=== PATIENT | male | born 1950 | race African-American/Black ===

== ENCOUNTER 2016-07-20 15:22 | Inpatient (IN) | payer OTHER ==
[2016-07-20 15:43] VITALS: BMI 29.5
--- NOTE | 2016-07-20 17:13 | HP ---
COWS - Scale Resting Pulse: 2= [place] 101-120 Sweatin= Chills/Flushing Restless Observation: 3= Extraneous Movement Pupil Size: 0= Normal to Room Light Bone or Joint Aches: 2= Severe Diffuse Aches Runny Nose/ Eye Tearin= Runny Nose/Eyes GI Upset > 30mins: 2= Nausea/Diarrhea Tremor Observation: 2= Slight Tremor Visible Yawning Observation: 0= None Anxiety or Irritability: 2=Irritable/Anxious Goose Flesh Skin: 0=Smooth Skin COWS Score: 16 Admission [facility] - [facility] Chief Complaint: withdrawal sx Allergies/Adverse Reactions: Allergies Allergy/AdvReac Type Severity Reaction Status Date / Time No Known Allergies Allergy Verified 07/20/16 16:27 History of Present Illness: 65 years old male with long history of heroin nicotine dependence, diabetes ii, hypertension, cataract, and depression, longest sobriety 2 years is admitted to detox Exam Limitations: No Limitations - Ebola screening Have you traveled outside of the country in the last 21 days: No Have you had contact with anyone from an Ebola affected area: No Have you been sick,other than usual withdrawal symptoms: No Do you have a fever: No - Review of Systems Constitutional: Chills, Changes in sleep, Weight Stable EENT: reports: Cataracts (right eye) Respiratory: reports: No Symptoms reported Cardiac: reports: Palpitations GI: reports: Nausea, Poor Fluid Intake, Abdominal cramping : reports: Other (kidney stage 3 - no active treatment) Musculoskeletal: reports: Back Pain, Joint Pain, Muscle Pain, Neck Pain Integumentary: reports: No Symptoms Reported Neuro: reports: Tremors Endocrine: reports: No Symptoms Reported Hematology: reports: No Symptoms Reported Psychiatric: reports: Judgement Intact, Orientated x3, Depressed Other Systems: Reviewed and Negative Patient History - Patient Medical History Hx Anemia: No Hx Asthma: No Hx Chronic Obstructive Pulmonary Disease (COPD): No Hx Cancer: No Hx Cardiac Disorders: No Hx Congestive Heart Failure: No Hx Hypertension: Yes Hx Hypercholesterolemia: No Hx Pacemaker: No HX Cerebrovascular Accident: No Hx Seizures: No Hx Dementia: No Hx Diabetes: Yes (BGM-241) Hx Gastrointestinal Disorders: No Hx Liver Disease: No Hx Genitourinary Disorders: Yes (kidney stage 3 no active treatment) Hx Sexually Transmitted Disorders: No Hx Renal Disease (ESRD): No Hx Thyroid Disease: No Hx Human Immunodeficiency Virus (HIV): No Hx Hepatitis C: No Hx Depression: Yes Hx Suicide Attempt: No Hx Bipolar Disorder: No Hx Schizophrenia: No - Patient Surgical History Past Surgical History: Yes Hx Cataract Extraction: Yes (lt eye 2014) Hx Cardiac Surgery: No Hx Lung Surgery: No Hx Breast Surgery: No Hx Breast Biopsy: No Hx Abdominal Surgery: No Hx Appendectomy: No Hx Cholecystectomy: No Hx Genitourinary Surgery: No Hx Orthopedic Surgery: Yes (lt foot-02/2016) Other Surgical History: right knee Anesthesia Reaction: No - PPD History Previous Implant?: Yes Documented Results: Negative w/o proof Implanted On Prior [facility] Admission?: No PPD to be Administered?: Yes - Smoking Cessation Smoking history: Never smoked Have you smoked in the past 12 months: No Hx Chewing Tobacco Use: No Initiated information on smoking cessation: No - Substance & Tx. History Hx Alcohol Use: No Hx Substance Use: Yes Substance Use Type: Heroin Hx Substance Use Treatment: Yes - Substances Abused Heroin Route: Inhalation Frequency: Daily Amount used: 12 BAGS Age of first use: 50 Date of Last Use: 07/20/16 Family Disease History - Family Disease History Family Disease History: Heart Disease: Father (), Mother (), [place] : Brother (bone ) Admission Physical Exam [facility] - Vital Signs Vital Signs: Vital Signs - 24 hr 07/20/16 15:41 Temperature 97.2 F L Pulse Rate 104 H Respiratory 18 Rate Blood Pressure 187/107 - Physical General Appearance: Yes: Nourished, Appropriately Dressed, Mild Distress, Tremorous, Irritable, Sweating, Anxious HEENTM: Yes: Hearing grossly Normal, Normal ENT Inspection, Normocephalic, Normal Voice Respiratory: Yes: Chest Non-Tender, Lungs Clear, Normal Breath Sounds, No Respiratory Distress, No Accessory Muscle Use Neck: Yes: Supple, Trachea in good position Breast: Yes: Breasts Symetrical Cardiology: Yes: Regular Rhythm, S1, S2, Tachycardia, Other (cardiomyopathy) Abdominal: Yes: Non Tender, Soft Genitourinary: Yes: Within Normal Limits, Pain ("one kidney stage 3") Back: Yes: Normal Inspection Musculoskeletal: Yes: Gait Steady (walker), Back pain, Muscle Pain, Muscle weakness (left foot) Extremities: Yes: Non-Tender, Tremors, Swelling (left foot) Neurological: Yes: Fully Oriented, Alert, Motor Strength 5/5, Normal Response, Depressed Affect Integumentary: Yes: Dry, Warm, Other (left foot hyperpigmentation) Lymphatic: Yes: Within Normal Limits - Diagnostic (1) Opioid dependence with withdrawal Current Visit: Yes Status: Acute (2) Hypertension Current Visit: Yes Status: Acute Qualifiers: Hypertension type: essential hypertension Qualified Code(s): I10 - Essential (primary) hypertension (3) Diabetes mellitus type II, non insulin dependent Current Visit: Yes Status: Acute Comment: dietary control, no oral medication (4) Cataract Current Visit: Yes Status: Chronic Comment: left repaired right eye scheduled (5) Status post left foot surgery Current Visit: Yes Status: Resolved (6) Kidney disease, chronic, stage III (moderate, EGFR 30-59 ml/min) Current Visit: Yes Status: Chronic (7) Walker as ambulation aid Current Visit: Yes Status: Resolved (8) Sea-boot foot of left lower extremity Current Visit: Yes Status: Resolved Qualifiers: Encounter type: sequela Qualified Code(s): T69.022S - Immersion foot , left foot, sequela Cleared for Admission [facility] - Detox or Rehab [facility] Level of Care: Medically Managed Detox Regimen/Protocol: Methadone [facility] Breath Alcohol Content Breath Alcohol Content: 0 Urine Drug Screen - Results Drug Screen Negative: No Urine Drug Screen Results: OPI-Opiates, BZO-Benzodiazepines, MTD-Methadone
[2016-07-20] MEDS ORDERED: guaiFENesin/D-METHORPHAN HB 10 ML UNIT-DOSE CUPS PO PRN (17:18)
[2016-07-20] MEDS ORDERED: MENTHOL/PHENOL 1 EACH UD MM PRN (17:18)
[2016-07-20] MEDS ORDERED: MAGNESIUM HYDROX 2400MG/30ML ORAL SUSPENSION 30 ML CUP PO PRN (17:18)
[2016-07-20] MEDS ORDERED: diphenhydrAMINE HCL 50 MG CAPSULE PO PRN (17:18)
[2016-07-20] MEDS ORDERED: LOPERAMIDE HCL 2 MG CAPSULE PO PRN (17:18)
[2016-07-20] MEDS ORDERED: P-EPHED 60MG/TRIPROLIDI 2.5MG TABLET PO PRN (17:18)
[2016-07-20] MEDS ORDERED: MAG HYDROX/AL HYDROX/SIMETH 30 ML UNIT-DOSE CUP PO PRN (17:18)
[2016-07-20] MEDS ORDERED: MAGNESIUM CITRATE 300 ML BOTTLE PO PRN (17:18)
[2016-07-20] MEDS ORDERED: IBUPROFEN 400 MG TABLET (FP) PO PRN (17:18)
[2016-07-20] MEDS ORDERED: ACETAMINOPHEN 325 MG TABLET (FP) PO PRN (17:18)
[2016-07-20] MEDS ORDERED: cloNIDine HCL 0.1 MG TABLET PO PRN (17:23)
[2016-07-20] MEDS ORDERED: METHADONE HCL 10 MG TABLET (FOR DETOX USE ONLY) PO ONE ×2 (18:30→23:00)
[2016-07-20] MEDS: LISINOPRIL 20 MG TABLET (FP) PO SCH (18:43)
[2016-07-20] MEDS: amLODIPine BESYLATE 10 MG TABLET (FP) PO SCH (18:43)
[2016-07-20] MEDS: diazePAM 5 MG TABLET PO PRN ×2 (18:43→22:36)
[2016-07-20 20:27] LABS: URINE APPEARANCE CLEAR; URINE BILIRUBIN NEGATIVE (NEGATIVE); URINE BLOOD NEGATIVE (NEGATIVE); URINE COLOR YELLOW; URINE GLUCOSE (UA) 2+ (NEGATIVE); URINE KETONE NEGATIVE (NEGATIVE); URINE LEUK ESTERASE NEGATIVE (NEGATIVE); URINE NITRITE NEGATIVE (NEGATIVE); URINE PROTEIN 3+ (NEGATIVE); URINE UROBILINOGEN NEGATIVE E.U./dl (0.2-1.0)
[2016-07-20 20:29] LABS: URINE MUCUS RARE; URINE RBC 12 /hpf (0-3); URINE WBC 2 /hpf (3-5)
[2016-07-20] MEDS ORDERED: MINERAL OIL/PETROLAT/WATER TOPICAL CREAM 454 GM JAR TP SCH (22:00)
[2016-07-20] MEDS ORDERED: THIAMINE HCL 100 MG TABLET (FP) PO SCH (22:00)
[2016-07-20] MEDS ORDERED: ONDANSETRON *ODT* 4 MG TABLET SL ONE (22:53)
[2016-07-21] MEDS ORDERED: METHADONE HCL 10 MG TABLET (FOR DETOX USE ONLY) PO ONE (10:00)
[2016-07-21] MEDS ORDERED: PRENATAL VITAMINS W/ FOLIC ACID TABLET (FP) PO SCH (10:00)
--- NOTE | 2016-07-21 10:26 | CONSULT ---
[facility] Psychiatric Consult - Data Date of interview: 07/21/16 Admission source: [facility] Identifying data: This is 65 years old male ambulatieng with walker,wheelchare, with no psychiatric hospitalization history intoxicated with Heroin Substance Abuse History: - Smoking Cessation. Smoking history: Never smoked. Have you smoked in the past 12 months: No. Hx Chewing Tobacco Use: No. Initiated information on smoking cessation: No. - Substance & Tx. History. Hx Alcohol Use: No. Hx Substance Use: Yes. Substance Use Type: Heroin. Hx Substance Use Treatment: Yes. - Substances Abused. Heroin. Route: Inhalation. Frequency: Daily. Amount used: 12 BAGS. Age of first use: 50. Date of Last Use: 07/20/16 Medical History: Left leg injury history, DM-2, Catarcta history, Kidney problems history, Psychiatric History: Denies Physical/Sexual Abuse/Trauma History: Denies Additional Comment: Observation. Detox Unit Care protocol Mental Status Exam - Mental Status Exam Alert and Oriented to: Person Patient Appearance: Unkempt Mood: Apprehensive Affect: Appropriate Patient Behavior: Cooperative Speech Pattern: Appropriate Voice Loudness: Mildly Soft/Quiet Thought Process: Goal Oriented Thought Disorder: Being Controlled Hallucinations: Denies Suicidal Ideation: Denies Homicidal Ideation: Denies Insight/Judgement: Fair Sleep: Difficulty falling asleep Appetite: Fair Muscle strength/Tone: Rigidity Gait/Station: Ataxic Additional Comments: Observation. Detox Unit Care protocol Psychiatric Findings - Problem List ([place] 1, 2,3) (1) Opioid dependence with withdrawal Current Visit: Yes Status: Acute (2) Opioid-induced mood disorder Current Visit: Yes Status: Suspected (3) Opioid-induced sleep disorder, insomnia type, with onset during discontinuation/withdrawal Current Visit: Yes Status: Acute - Initial Treatment Plan Initial Treatment Plan: Observation. Detox Unit Care protocol
[2016-07-21] MEDS: LISINOPRIL 20 MG TABLET (FP) PO SCH (10:28)
[2016-07-21] MEDS: amLODIPine BESYLATE 10 MG TABLET (FP) PO SCH (10:29)
[2016-07-21 10:39] LABS: MCHC 32.7 g/dl (32.0-35.9); MEAN CELL VOLUME 85.8 fl (80-96); PLATELET COUNT 329 K/MM3 (134-434); WHITE BLOOD COUNT 19.8 K/mm3 (4.0-10.0)
[2016-07-21 11:02] LABS: ALBUMIN 3.7 g/dl (3.4-5.0); BILIRUBIN,TOTAL 1.3 mg/dL (0.2-1.0); CALCIUM 8.7 mg/dL (8.5-10.1); CREATININE 1.8 mg/dL (0.7-1.3); TOT PROT 7.8 g/dl (6.4-8.2)
--- NOTE | 2016-07-21 11:18 | EKG ---
Test Reason : Blood Pressure : / mmHG Vent. Rate : 097 BPM Atrial Rate : 097 BPM P-R Int : 148 ms QRS Dur : 090 ms QT Int : 350 ms P-R-T Axes : 054 -44 042 degrees QTc Int : 444 ms NORMAL SINUS RHYTHM POSSIBLE LEFT ATRIAL ENLARGEMENT LEFT AXIS DEVIATION LEFT VENTRICULAR HYPERTROPHY ABNORMAL ECG NO PREVIOUS ECGS AVAILABLE Confirmed by SHO ACOSTA MD ([id number]) on 07/21/2016 11:18:19 AM Referred By: Confirmed By:SHO ACOSTA MD
[2016-07-21 14:07] VITALS: BP 133/88; PULSE 98; TEMP 99.1
--- NOTE | 2016-07-21 15:11 | PN ---
S CIWA - CIWA Score Nausea/Vomitin Muscle Tremors: 2 Anxiety: 2 Agitation: 2 Paroxysmal Sweats: 3 Tacttile Disturbances: 2-Mild Itch/Numbness/Burn S COWS - Scale Resting Pulse: 1= [place] 81-100 Sweatin=Flushed/Facial Moisture Restless Observation: 1= Difficult to Sit Still Pupil Size: 1= Pupils >than Normal Bone or Joint Aches: 2= Severe Diffuse Aches Runny Nose/ Eye Tearin= Nasal Congestion GI Upset > 30mins: 1= Stomach Cramp Tremor Observation of Outstretched Hands: 1= Tremor [place], Not Seen Yawning Observation: 1= 1-2x During Session Anxiety or Irritability: 1=Feels Anxious/Irritable Goose Flesh Skin: 0=Smooth Skin COWS Score: 12 S Progress Note (SOAP) Subjective: interrupted sleep, sweats, nausea, leg pains , fever Objective: 07/21/16 15:08 Vital Signs Temperature 99.1 F 07/21/16 14:07 Pulse Rate 98 H 07/21/16 14:07 Respiratory Rate 18 07/21/16 14:07 Blood Pressure 133/88 07/21/16 14:07 O2 Sat by Pulse Oximetry (%) Laboratory Tests 07/20/16 07/20/16 07/21/16 16:17 19:00 06:00 WBC 19.8 H RBC 4.10 Hgb 11.5 L Hct 35.2 L MCV 85.8 MCHC 32.7 RDW 14.0 Plt Count 329 MPV 8.0 Sodium Potassium Chloride Carbon Dioxide Anion Gap BUN Creatinine Creat Clearance w eGFR POC Glucometer 241 Random Glucose Calcium Total Bilirubin AST ALT Alkaline Phosphatase Total Protein Albumin Urine Color Yellow Urine Appearance Clear Urine pH 6.0 Ur Specific [place] 1.020 Urine Protein 3+ H Urine Glucose (UA) 2+ H Urine Ketones Negative Urine Blood Negative Urine Nitrite Negative Urine Bilirubin Negative Urine Urobilinogen Negative Ur Leukocyte Esterase Negative Urine RBC 12 Urine WBC 2 Ur Epithelial Cells Rare Urine Mucus Rare RPR Titer 07/21/16 07/21/16 07/21/16 06:00 06:00 06:04 WBC RBC Hgb Hct MCV MCHC RDW Plt Count MPV Sodium 136 Potassium 4.5 Chloride 102 Carbon Dioxide 23 Anion Gap 11 BUN 24 H Creatinine 1.8 H Creat Clearance w eGFR 38.18 POC Glucometer 198 Random Glucose 197 H Calcium 8.7 Total Bilirubin 1.3 H AST 15 ALT 21 Alkaline Phosphatase 150 H Total Protein 7.8 Albumin 3.7 Urine Color Urine Appearance Urine pH Ur Specific [place] Urine Protein Urine Glucose (UA) Urine Ketones Urine Blood Urine Nitrite Urine Bilirubin Urine Urobilinogen Ur Leukocyte Esterase Urine RBC Urine WBC Ur Epithelial Cells Urine Mucus RPR Titer Nonreactive pt aox3 in nad ambulating oral clear 07/21/16 15:09 lungs clear abd soft nontender bs + Assessment: 07/21/16 15:09 withdrawl sx's fever leucocytosis dm htn Plan: cont. detox increase fluids transfer to ED pt signed out to PA. Russell empresss ambulette activated
[2016-07-22] MEDS ORDERED: METHADONE HCL 5 MG TABLET (FOR DETOX USE ONLY) PO ONE (10:00)
[2016-07-23] MEDS ORDERED: METHADONE HCL 5 MG TABLET (FOR DETOX USE ONLY) PO ONE (10:00)
[2016-07-24] MEDS ORDERED: METHADONE HCL 10 MG TABLET (FOR DETOX USE ONLY) PO ONE (10:00)
[2016-07-25] MEDS ORDERED: METHADONE HCL 5 MG TABLET (FOR DETOX USE ONLY) PO ONE (06:00)
--- NOTE | 2016-07-28 10:08 | DS ---
[facility] Detox Discharge Summary Admission Date: 07/20/16 Discharge Date: 07/21/16 - History Present History: Opioid Dependence - Physical Exam Results Vital Signs: Vital Signs Temperature 99.1 F 07/21/16 14:07 Pulse Rate 98 H 07/21/16 14:07 Respiratory Rate 18 07/21/16 14:07 Blood Pressure 133/88 07/21/16 14:07 O2 Sat by Pulse Oximetry (%) - Treatment Hospital Course: Detox Protocol Followed - Medication Discharge Medications: Ambulatory Orders Amlodipine Besylate [Norvasc -] 10 mg PO DAILY 07/20/16 Lisinopril [Prinivil] 40 mg PO DAILY 07/20/16 Clonidine HCl [Catapres -] 0.1 mg PO TID #90 tablet 07/25/16 Thiamine HCl [Vitamin B1 -] 100 mg PO DAILY #30 tablet 07/25/16 - Diagnosis (1) Pneumonia Status: Acute Qualifiers: Aspiration pneumonia type: unspecified (2) Sepsis Status: Acute Qualifiers: Sepsis type: sepsis due to unspecified organism Qualified Code(s): A41.9 - Sepsis, unspecified organism (3) Small bowel obstruction Status: Acute (4) Diabetes mellitus type II, non insulin dependent Status: Chronic (5) Hypertension Status: Chronic Qualifiers: Hypertension type: essential hypertension Qualified Code(s): I10 - Essential (primary) hypertension (6) Opioid dependence with withdrawal Status: Chronic (7) Kidney disease, chronic, stage III (moderate, EGFR 30-59 ml/min) Status: Chronic - AMA Did Patient Leave Against Medical Advice: No (pt transfered to [facility] for further evaluation. )
== END 2016-07-21 23:45 | disposition short-term general hospital (02) | DRG 897 ==
LOC: YASAS 15:22 → Y6N 18:07
PROVIDERS: ADMIT Internal Medicine Addiction Medicine; ATTEND Internal Medicine Addiction Medicine
PROC: HZ2ZZZZ Detoxification Services for Substance Abuse Treatment (ICD-10-PCS; principal; 2016-07-20)
DX: F11.23 Opioid dependence with withdrawal (principal); F11.282 Opioid dependence with opioid-induced sleep disorder; F11.24 Opioid dependence with opioid-induced mood disorder; F17.210 Nicotine dependence, cigarettes, uncomplicated; E11.9 Type 2 diabetes mellitus without complications; H26.9 Unspecified cataract; I12.9 Hypertensive chronic kidney disease with stage 1 through stage 4 chronic kidney disease, or unspecified chronic kidney disease; N18.3 Chronic kidney disease, stage 3 (moderate); Z98.42 Cataract extraction status, left eye; Z99.89 Dependence on other enabling machines and devices; R26.2 Difficulty in walking, not elsewhere classified; D72.829 Elevated white blood cell count, unspecified; R50.9 Fever, unspecified; T69 Other effects of reduced temperature
CPT/HCPCS: 36415; 80053; 81003; 81015; 85027; 86593; 93005; 93010

== ENCOUNTER 2016-07-21 15:56 | Inpatient (IN) | payer OTHER ==
[2016-07-21] MEDS ORDERED: SODIUM CHLORIDE 1,000 ML IV STA (16:16)
[2016-07-21] MEDS ORDERED: ACETAMINOPHEN 325 MG TABLET (FP) PO ONE (16:19)
[2016-07-21] MEDS ORDERED: ACETAMINOPHEN 325 MG TABLET (FP) ONE (16:44)
[2016-07-21 16:53] LABS: VENOUS PH 7.33 (7.31-7.41)
[2016-07-21 16:55] LABS: VENOUS BLOOD GAS HCO3 25.6 meq/L (22-29)
[2016-07-21 17:00] LABS: URINE APPEARANCE CLEAR; URINE BILIRUBIN NEGATIVE (NEGATIVE); URINE COLOR YELLOW; URINE GLUCOSE (UA) 2+ (NEGATIVE); URINE KETONE NEGATIVE (NEGATIVE); URINE LEUK ESTERASE NEGATIVE (NEGATIVE); URINE NITRITE NEGATIVE (NEGATIVE); URINE UROBILINOGEN NEGATIVE E.U./dl (0.2-1.0)
[2016-07-21 17:03] LABS: BASOPHIL 0.3 % (0-2.0); EOSINOPHIL 0.3 % (0-4.5); MCH 27.9 pg (25.7-33.7); MCHC 33.2 g/dl (32.0-35.9); MEAN CELL VOLUME 84.1 fl (80-96); MEAN PLT VOLUME 7.5 fl (7.5-11.1); PLATELET COUNT 340 K/MM3 (134-434)
[2016-07-21] MEDS ORDERED: LISINOPRIL 10 MG TABLET (FP) PO ONE (17:06)
[2016-07-21] MEDS ORDERED: amLODIPine BESYLATE 10 MG TABLET (FP) PO ONE ×2 (17:06→17:13)
--- NOTE | 2016-07-21 17:11 | PDOC ---
History of Present Illness - General Chief Complaint: SIRS, Suspected/Possible Stated Complaint: FEVER Time Seen by Provider: 07/21/16 16:15 History Source: Patient - History of Present Illness Timing/Duration: other Associated Symptoms: reports: fever/chills, malaise, nausea/vomiting. denies: chest pain, cough, headaches, shortness of breath Past History - Past Medical History Allergies/Adverse Reactions: Allergies Allergy/AdvReac Type Severity Reaction Status Date / Time No Known Allergies Allergy Verified 07/21/16 16:14 Home Medications: Ambulatory Orders Amlodipine Besylate [Norvasc -] 10 mg PO DAILY 07/20/16 Lisinopril [Prinivil] 40 mg PO DAILY 07/20/16 Methadone HCl 20 mg PO DAILY 07/21/16 Anemia: No Asthma: No Cancer: No Cardiac Disorders: No CVA: No COPD: No CHF: No Dementia: No Diabetes: Yes (BGM-241) GI Disorders: No Disorders: Yes (kidney stage 3 no active treatment) HTN: Yes Hypercholesterolemia: No Kidney Stones: No Liver Disease: No Suicide Attempt (Hx): No Seizures: No Thyroid Disease: No - Surgical History Abdominal Surgery: No Appendectomy: No Cardiac Surgery: No Cholecystectomy: No Lung Surgery: No Orthopedic Surgery: Yes (lt -02/2016) - Reproductive History Testicular Surgery: No - Psycho/Social/Smoking Cessation Hx Anxiety: No Suicidal Ideation: No Smoking History: Never smoked Have you smoked in the past 12 months: No Information on smoking cessation initiated: No Hx Alcohol Use: No Drug/Substance Use Hx: Yes (Heroine) Substance Use Type: Heroin Hx Substance Use Treatment: Yes Review of Systems - Review of Systems Constitutional: Yes: Chills, Fever, Malaise HEENTM: No: Ear Pain, Throat Pain Respiratory: No: Cough, Shortness of Breath ABD/GI: Yes: Nausea, Vomiting. No: Constipated, Diarrhea, Abdominal cramping : No: Dysuria, Hematuria Neurological: No: Headache, Dizziness *Physical Exam - Vital Signs Last Vital Signs Temp Pulse Resp BP Pulse Ox 102.5 F H 106 H 18 175/100 95 07/21/16 16:12 07/21/16 16:12 07/21/16 16:12 07/21/16 16:12 07/21/16 16:12 - Physical Exam General Appearance: Yes: Appropriately Dressed. No: Apparent Distress HEENT: positive: Normal ENT Inspection, Normal Voice. negative: Scleral Icterus (R), Scleral Icterus (L) Neck: positive: Supple. negative: Lymphadenopathy (R), Lymphadenopathy (L) Respiratory/Chest: positive: Lungs Clear, Normal Breath Sounds. negative: Respiratory Distress Cardiovascular: positive: Regular Rate, S1, S2 Gastrointestinal/Abdominal: positive: Soft. negative: Tender Integumentary: positive: Dry, Warm Neurologic: positive: Fully Oriented, Alert, Normal Mood/Affect ED Treatment Course - LABORATORY CBC & Chemistry Diagram: 07/21/16 16:27 07/21/16 16:26 - ADDITIONAL ORDERS Additional order review: Laboratory Results 07/21/16 16:50 VBG pH 7.33 POC VBG pCO2 50.2 POC VBG pO2 18.3 L* - RADIOLOGY Radiology Studies Ordered: Category Date Time Status CHEST X-RAY PORTABLE* [RAD] Stat Radiology 07/21/16 16:16 Completed Medical Decision Making - Medical Decision Making 07/21/16 17:07 65 yo M, h/o HTN, DM, CKD, heroin abuse, currently in rehab at [facility] and now sent in for fever w/ leukocytosis today. Patient's reports that he was admitted to rehab yesterday, but that prior to that he had been feeling nauseous at home with chills and malaise. States symptoms have since worsened. Denies cough, shortness of breath, chest pain, abdominal pain, changes to bowel movements, dysuria, headache, neck stiffness, photophobia or dizziness. See exam Fever Triggered sepsis at triage given Fever of 102 and tachycardia -tylenol -IVF -labs/ua/cxr -anticipate admission HTN Elevated BP in ED Admits to not taking his meds x 1 week as he ran out -will given home meds and reassess 07/21/16 18:15 X-ray read as possible early R basilar PNA w/ wbc of 20. Will tx for CAP as d/w ED attg and admit 07/21/16 18:57 *DC/Admit/Observation/Transfer Diagnosis at time of Disposition: Pneumonia Qualifiers: Pneumonia type: due to unspecified organism Laterality: unspecified laterality Lung location: unspecified part of lung Qualified Code(s): J18.9 - Pneumonia, unspecified organism - Discharge Dispostion Condition at time of disposition: Fair Admit: Yes - Referrals Referrals: STAFF,NOT ON [Primary Care Provider] -
[2016-07-21 17:12] LABS: URINE BLOOD 1+ (NEGATIVE); URINE PROTEIN 3+ (NEGATIVE)
[2016-07-21] MEDS ORDERED: amLODIPine BESYLATE 5 MG TABLET (FP) ONE (17:13)
[2016-07-21] MEDS ORDERED: LISINOPRIL 20 MG TABLET (FP) PO ONE (17:13)
[2016-07-21] MEDS ORDERED: LISINOPRIL 20 MG TABLET (FP) ONE (17:14)
[2016-07-21 17:33] LABS: INR 1.26 (0.82-1.09); PROTHROMBIN TIME (PATIENT) 13.9 SEC (9.98-11.88)
[2016-07-21 17:58] LABS: ALBUMIN 3.2 g/dl (3.4-5.0); ANION GAP 12 (8-16); BILIRUBIN,TOTAL 1.2 mg/dL (0.2-1.0); CALCIUM 8.6 mg/dL (8.5-10.1); CO2 26 mmol/L (21-32); CREATININE 2.1 mg/dL (0.7-1.3); GLUCOSE,RANDOM 201 mg/dL (74-106); SGOT/AST 20 U/L (15-37); SGPT/ALT 23 U/L (12-78); TOT PROT 7.6 g/dl (6.4-8.2)
[2016-07-21 18:00] LABS: ALK PHOS 136 U/L (45-117)
[2016-07-21 18:01] LABS: URINE HYALINE CAST 8 /lpf; URINE MUCUS RARE; URINE RBC 10 /hpf (0-3); URINE WBC 2 /hpf (3-5)
[2016-07-21] MEDS ORDERED: AZITHROMYCIN IVPB 500 MG in DEXTROSE 5%-WATER - 250 ML IVPB ONE (18:48)
[2016-07-21] MEDS ORDERED: CEFTRIAXONE 1 GM in DEXTROSE 5%-WATER - 50 ML IVPB ONE (18:48)
[2016-07-21] MEDS ORDERED: CEFTRIAXONE 50 ML ONE (19:04)
[2016-07-21] MEDS ORDERED: AZITHROMYCIN IVPB 250 ML IVPB ONE (19:32)
[2016-07-21 19:45] LABS: TROPONIN I < 0.02 ng/ml (0.00-0.05)
--- NOTE | 2016-07-21 20:29 | PN ---
<Gomez Godinez - Last Filed: 07/21/16 20:27> Teaching Attending Note Name of Resident: Shani Chavez ATTENDING PHYSICIAN STATEMENT I saw and evaluated the patient. I reviewed the resident's note and discussed the case with the resident. I agree with the resident's findings and plan as documented. SUBJECTIVE: OBJECTIVE: ASSESSMENT AND PLAN: <Cait Carrington - Last Filed: 07/21/16 22:54> Teaching Attending Note ATTENDING PHYSICIAN STATEMENT I saw and evaluated the patient. I reviewed the resident's note and discussed the case with the resident. I agree with the resident's findings and plan as documented. SUBJECTIVE: 65 yo M with PMHx of HTN, DM, CKD stage 3, heroin abuse, and depression who presents with shortness of breath, fever, chills, nausea, vomiting, and malaise for 1 day. He notes the vomit was whitish in color and had no blood. Patient states he was recently admitted to rehab yesterday for heroin at [facility] [address] 20 hours prior. Patient also states an associated runny nose, cough and frontal headache. Patient has not has his flu shot. Patient denies sick contacts. Denies: abdominal pain, dysuria, diarrhea, ear pain, sinus pain, chest pain Surgical Hx: orthopaedic left foot, left cataract surgery OBJECTIVE: Last Vital Signs Temp Pulse Resp BP Pulse Ox 99.8 F H 92 H 18 120/77 95 07/21/16 19:47 07/21/16 22:17 07/21/16 22:17 07/21/16 22:17 07/21/16 22:17 GENERAL: Awake, alert, and fully oriented, in mild distress, follows commands HEENT: Atraumatic. Pinpoint pupils bilaterally, non-icteric sclera. No sinus tenderness. Moist mucosa. No JVD. No LAD. LUNGS: No distress, speaks full sentences, clear to auscultation bilaterally, no wheezing, rhonchi or rales. HEART: Regular rate and rhythm, normal S1 and S2, no murmurs, rubs or gallops. ABDOMEN: Soft, nontender, normoactive bowel sounds. No guarding, no rebound. No masses EXTREMITIES: Left leg in boot, no edema. Right foot no infections. No clubbing or cyanosis. NEUROLOGICAL: Normal speech, no focal deficits noted. SKIN: Warm, Dry, normal turgor. Right leg chronic scaly skin changes noted. CBCD WBC 20.0 K/mm3 (4.0-10.0) H 07/21/16 16:27 RBC 3.93 M/mm3 (4.00-5.60) L 07/21/16 16:27 Hgb 11.0 GM/dL (11.7-16.9) L 07/21/16 16:27 Hct 33.0 % (35.4-49) L 07/21/16 16:27 MCV 84.1 fl (80-96) 07/21/16 16:27 MCHC 33.2 g/dl (32.0-35.9) 07/21/16 16: RDW 14.0 % (11.9-15.9) 07/21/16 16:27 Plt Count 340 K/MM3 (134-434) 07/21/16 16:27 MPV 7.5 fl (7.5-11.1) 07/21/16 16:27 CMP Sodium 131 mmol/L (136-145) L 07/21/16 16:26 Potassium 4.4 mmol/L (3.5-5.1) 07/21/16 16:26 Chloride 93 mmol/L (98-107) L 07/21/16 16:26 Carbon Dioxide 26 mmol/L (21-32) 07/21/16 16:26 Anion Gap 12 (8-16) 07/21/16 16:26 BUN 28 mg/dL (7-18) H 07/21/16 16:26 Creatinine 2.1 mg/dL (0.7-1.3) H 07/21/16 16:26 Creat Clearance w eGFR 31.96 (>60) 07/21/16 16:26 Calcium 8.6 mg/dL (8.5-10.1) 07/21/16 16:26 Total Bilirubin 1.2 mg/dL (0.2-1.0) H 07/21/16 16:26 AST 20 U/L (15-37) D 07/21/16 16:26 ALT 23 U/L (12-78) 07/21/16 16:26 Alkaline Phosphatase 136 U/L (45-117) H 07/21/16 16:26 Total Protein 7.6 g/dl (6.4-8.2) 07/21/16 16:26 Albumin 3.2 g/dl (3.4-5.0) L 07/21/16 16:26 Chest X-Ray Impression: Possible early right basiliar consolidation. ASSESSMENT AND PLAN: 65 yo M with PMHx of HTN, DM, CKD stage 3, heroin abuse, and depression who presents with sepsis secondary to CAP. 1.) Sepsis secondary to community acquired pneumonia -Send 2 sets of blood cultures -Sputum culture -Legionella antigen in urine -Pneumococcal antigen in urine -2 L O2 nasal cannula -Ceftriaxone 2g IV PB Q 24hrs -Azithromycin 500 mg IV PB Q 24 hours 2.) MORGAN on CKD -Send urine lytes -Urine creatine -Repeat UA -Renal US -Avoid nephrotoxic medications -Gentle IV fluid hydration 3.) HTN -Resume amlodipine and lisinopril 4.) DM -Insulin sliding scale -Diabetic diet 5.) Heroin dependence/ no signs of current withdraw. Not in methadone program -Methadone PRN if withdraw 6.) DVT ppx -Heparin 5000 units Q 12 hours Documentation prepared by Cait Carrington, acting as medical assistant instructor for Gomez Godinez M.D.
--- NOTE | 2016-07-21 21:41 | HP ---
CHIEF COMPLAINT: Cold, fever, cough, SOB PCP: Dr. Rik Gorman HISTORY OF PRESENT ILLNESS: 65 year old male presented to the ED with the chief complaint of cold, fever, cough x 1 day. A/c to the patient, he was in the rehab for more than 20 hours yesterday and started feeling unwell. Initially started with runny nose, productive cough producing whitish sputum. It was associated with fever (not recorded), chills, rigors and sweating. Patient reports to have nausea and few episodes of vomiting yesterday, containing food particles, no blood noticed. 1 episode of vomiting during examination in the ED. No abdominal pain, chest pain , palpitation. Patient mentions he has dizziness along with headache, frontal area, on/off. Denies LOC. Lives with . ER course was notable for: (1) CBC, CMP, UA (2) CXR (3) Ceftriaxone, Azithromycin, NS, Tylenol Recent Travel: None PAST MEDICAL HISTORY: Heroin dependence detox, Hypertension, DM II, Cataract, Depression, longest sobriety 2 years, CKD III PAST SURGICAL HISTORY: Left foot surgery in 2016 (36pins), Social History: Smoking: Never smoked as per the patient Alcohol: Never took alcohol as per the patient Drugs: Heroine (inhalation) since 1991 Family History: Brother of bone cancer 3 months ago. 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 Absent: weight change HEENT: Absent: rhinorrhea, nasal congestion, throat pain, throat swelling, difficulty swallowing, mouth swelling, ear pain, eye pain, visual changes CARDIOVASCULAR: Absent: chest pain, syncope, palpitations, irregular heart rate, lightheadedness , peripheral edema RESPIRATORY: Present: cough, shortness of breath Absent: dyspnea with exertion, orthopnea, wheezing, stridor, hemoptysis GASTROINTESTINAL: Present: nausea, vomiting Absent: abdominal pain, abdominal distension, , diarrhea, constipation, melena, hematochezia GENITOURINARY: Absent: dysuria, frequency, urgency, hesitancy, hematuria, flank pain, genital pain MUSCULOSKELETAL: Absent: myalgia, arthralgia, joint swelling, back pain, neck pain SKIN: Absent: rash, itching, pallor HEMATOLOGIC/IMMUNOLOGIC: Absent: easy bleeding, easy bruising, lymphadenopathy, frequent infections ENDOCRINE: Absent: unexplained weight gain, unexplained weight loss, heat intolerance, cold intolerance NEUROLOGIC: Absent: headache, focal weakness or paresthesias, dizziness, unsteady gait, seizure, mental status changes, bladder or bowel incontinence PSYCHIATRIC: Present: Depression Absent: anxiety, suicidal or homicidal ideation, hallucinations. PHYSICAL EXAMINATION Vital Signs - 24 hr 07/21/16 07/21/16 19:47 20:35 Temperature 99.8 F H Pulse Rate [ 96 H 88 Apical] Respiratory 18 18 Rate Blood Pressure 169/100 120/8 [Right Arm] O2 Sat by Pulse 95 95 Oximetry (%) GENERAL: Patient lying in bed in propped up position, vomiting, Awake, alert, and fully oriented, in mild respiratory distress. HEAD: Normal with no signs of trauma. EYES: EOM intact, no pallor or icterus. EARS, NOSE, THROAT: Ears normal. Moist mucous membranes. NECK: Supple. LUNGS: B/L equal air entry. No wheezes, and no crackles. No accessory muscle use. HEART: Regular rate and rhythm, normal S1 and S2 without murmur. ABDOMEN: Tense +, distended+, non tender, normoactive bowel sounds, guarding +, no rebound, no masses. Hepatosplenomegaly couldn't be appreciated. MUSCULOSKELETAL: Normal range of motion at all joints. No bony deformities or tenderness. No CVA tenderness. UPPER EXTREMITIES: 2+ pulses, warm, well-perfused. No cyanosis. No clubbing. No peripheral edema. LOWER EXTREMITIES: Left Boot in place Right lower extremity: Scaly dermatitis, 2+ pulses, warm, well-perfused. No edema. NEUROLOGICAL: Cranial nerves II-XII intact. Normal speech. Gait not observed. PSYCHIATRIC: Cooperative. Good eye contact. Appropriate mood and affect. SKIN: Warm, dry, normal turgor, no rashes or lesions noted. ASSESSMENT/PLAN: 65 year old male with significant PMH of Heroin dependence detox, Hypertension, DM II, Cataract, Depression, longest sobriety 2 years, CKD III presented to the ED with the chief complaint of cold, fever, cough x 1 day. # Sepsis most likely secondary to Community acquired pneumonia Patient presented with fever, cough, sob, Temp-102.2F, 101bpm, leukocytosis of 20. SIRS-3 CXR shows right lower lobe infiltrate In the ED, patient was given 1gm of Ceftriaxone, Azithromycin Patient continued with IV Ceftriaxone 2gm Daily, IV Azithromycin IV NS @ 83mls/hr. Zofran 4mg IVPB stat and PRN Nasopharyngeal swab negative for Influenza Blood culture/Urine culture pending Urine for Legionella ordered Sputum for culture ordered Monitor Vitals # Drug abuse Patient currently on detox for Heroine abuse at rehab in [facility]. COWS score- Urine tox sent As per [facility] u tox: Positive for Opiates, heroine, Benzodiazepine Received Methadone 10mg on 07/20/2016 and 20mg on 07/21/2016 Methadone not resumed, to be continued after confirming the dose with PCP Watch for withdrawal symptoms Counseling # MORGAN with CKD stage III Patients creatinine increased 1.8--->2 (baseline creatinine unknown) IV NS @ 83mls/hr Avoid nephrotoxic drugs # Hyponatremia Na-131 most likely due to pneumonia IV NS continued Urine electrolytes, urine creatinine ordered # Diabetes Mellitus RBS- 197 HbA1c ordered Patient was on Metformin for 10 years, currently stopped due to renal failure. Patient not on any home meds for DM as he wants to try with diet control. Insulin sliding scale ordered however patient refused. BGM Diabetic diet # Hypertension Continued Amlodipine 10mg and Lisinopril 40mg # Depression Not on any meds Counseling # FEN IV NS @ 83mls/hr Electrolytes to be repeated Diabetic diet # Prophylaxis For DVT- On Heparin 5000 sq For GI- Not indicated # Dispo: Admitted in Med- Surg. Duration of stay unknown # Code Status: Full code. Illness, Investigation and plan of care explained to the patient. He verbalized understanding. Case seen and discussed with Dr. Godinez. Visit type - Emergency Visit Emergency Visit: Yes ED Registration Date: 07/21/16 Care time: The patient presented to the Emergency Department on the above date and was hospitalized for further evaluation of their emergent condition. - New Patient This patient is new to me today: Yes Date on this admission: 07/22/16 - Critical Care Critical Care patient: No
[2016-07-21] MEDS ORDERED: SODIUM CHLORIDE 1,000 ML IV SCH (22:00)
[2016-07-21 23:29] VITALS: BMI 30.8
[2016-07-21] MEDS: HEPARIN NA (PORCINE) 5,000 UNITS/ML 1ML VIAL SQ SCH (23:45)
[2016-07-22] MEDS: INSULIN SLIDING SCALE (NOVOLOG) 1 VIAL SQ SCH ×5 (06:28→21:44)
--- NOTE | 2016-07-22 07:49 | PN ---
Physical Exam: SUBJECTIVE: Patient seen and examined Patient resting in bed NAD. No acute events. afebrile since last night. hemodynamically stable. O2 sat 93% o 2L. states that he feels better, has decreased cough with white psutum and no fever. Still has mild rhinorrhea. previously refused sliding scale but now agrees to it. denies h/a, chest pain, sob, lightheadedness, palpitations, abd pain, n/v, diarrhea or dysuria. Asking for methadone. OBJECTIVE: Vital Signs Period Temp Pulse Resp BP Sys/Henry Pulse Ox Last 24 Hr 98.9 F-99.8 F 19-96 18-95 120-169/8-100 95-95 GENERAL: Awake, alert, and fully oriented, NAD HEAD: atraumatic EYES: Perrla, EIOMI, conjunctiva clear EARS, NOSE, THROAT: Moist mucous membranes. NECK: Supple. LUNGS: RLL ronchi HEART: Regular rate and rhythm, normal S1 and S2 ABDOMEN: mildly distended, obese, non tender, normoactive bowel sounds, no hepatomegaly or splenomegaly MUSCULOSKELETAL: No CVA tenderness. UPPER EXTREMITIES: 2+ pulses, warm, well-perfused. No peripheral edema. LLE: Boot in place due to recent ortho surgery RLE:2+ pulses, warm, well-perfused. No edema. NEUROLOGICAL: Cranial nerves II-XII intact. Normal speech. Gait not observed. PSYCHIATRIC: Cooperative. Good eye contact. Appropriate mood and affect. SKIN: Warm, dry Active Medications Generic Name Dose Route Start Last Admin Trade Name Freq PRN Reason Stop Dose Admin Acetaminophen 650 mg 07/22/16 07:48 Tylenol - PO Q4H PRN FEVER OR PAIN Amlodipine Besylate 10 mg 07/22/16 10:00 Norvasc - PO DAILY JAYLIN Azithromycin 500 mg 07/22/16 10:00 Zithromax 500mg Ivpb (Pre-Docked) IVPB DAILY JAYLIN Ceftriaxone Sodium 2 gm 07/22/16 10:00 Rocephin 2gm Ivpb (Pre-Docked) IVPB DAILY JAYLIN Heparin Sodium (Porcine) 5,000 unit 07/21/16 22:00 07/21/16 23:45 Heparin - SQ Not Given BID JAYLIN Sodium Chloride 1,000 mls @ 83 mls/hr 07/21/16 22:00 07/22/16 06:27 Normal Saline - IV 83 mls/hr ASDIR JAYLIN Administration Insulin Aspart 1 vial 07/22/16 07:00 07/22/16 06:28 Novolog Vial Sliding Scale - SQ Not Given ACHS [facility] Protocol Lisinopril 40 mg 07/22/16 10:00 Prinivil PO DAILY [facility] Ondansetron HCl 4 mg 07/21/16 22:32 Zofran Injection IVPB Q6H PRN NAUSEA Thiamine HCl 100 mg 07/22/16 10:00 Vitamin B1 - PO DAILY [facility] ASSESSMENT/PLAN: This is a 65 year old male with significant PMH of Heroin dependence detox, Hypertension, DM II, Cataract, Depression and CKD stage III, who presented to the ED with the chief complaint of cold, fever, cough x 1 day. Nonsmoker but inhales heroin Sepsis due to CAP -CXR admission right lower lobe infiltrate -fever resolved, -leukocytosis 16.4 resolving -one/2 blood cultures growing gram + cocci in clusters -Influenza negative -Sputum for culture p/d -Ceftriaxone, Azithromycin day 2 -IV NS @ 83mls/hr. -nausea resolved -Zofran 4mg PRN Heroin abuse -On detox for Heroin abuse at [facility]. -[facility] u tox: Positive for Opiates, heroine, Benzodiazepine -Methadone 15 mg x 2 days, 10 mg x 1 day and 5 mg x 1 day; confirmed MORGAN with CKD stage III -creat 1.9 trending down -IV NS @ 83mls/hr Hyponatremia -resolved DM2 -previously on metformin but d/cd due to ckd -HbA1c ordered -sliding scale -fingerstick achs HTN -Amlodipine 10mg and Lisinopril 40mg Depression -denies being depressed at this time FEN NS @ 83mls/hr lytes stable DVT GI PPX: hep, diet Diabetic diet Monitor in Med Surg Visit type - Emergency Visit Emergency Visit: Yes ED Registration Date: 07/21/16 Care time: The patient presented to the Emergency Department on the above date and was hospitalized for further evaluation of their emergent condition. - New Patient This patient is new to me today: Yes Date on this admission: 07/22/16 - Critical Care Critical Care patient: No - Discharge Referral Referred to [facility] No
[2016-07-22 08:03] LABS: BASOPHIL 0.2 % (0-2.0); EOSINOPHIL 0.5 % (0-4.5); MCH 28.4 pg (25.7-33.7); MCHC 33.9 g/dl (32.0-35.9); MEAN CELL VOLUME 83.7 fl (80-96); MEAN PLT VOLUME 7.3 fl (7.5-11.1); NEUTROPHILS 87.7 % (42.8-82.8); PLATELET COUNT 273 K/MM3 (134-434); RDW 14.2 % (11.9-15.9); WHITE BLOOD COUNT 16.4 K/mm3 (4.0-10.0)
[2016-07-22 08:31] LABS: ALBUMIN 2.5 g/dl (3.4-5.0); BILIRUBIN,TOTAL 0.9 mg/dL (0.2-1.0); CALCIUM 7.5 mg/dL (8.5-10.1); CREATININE 1.9 mg/dL (0.7-1.3); TOT PROT 6.3 g/dl (6.4-8.2)
[2016-07-22 09:19] LABS: URINE CREATININE 92.5 mg/dL
[2016-07-22] MEDS: LISINOPRIL 20 MG TABLET (FP) PO SCH (09:25)
[2016-07-22] MEDS: amLODIPine BESYLATE 10 MG TABLET (FP) PO SCH (09:25)
[2016-07-22] MEDS: HEPARIN NA (PORCINE) 5,000 UNITS/ML 1ML VIAL SQ SCH ×3 (09:25→21:45)
[2016-07-22] MEDS: THIAMINE HCL 100 MG TABLET (FP) PO SCH (09:25)
[2016-07-22] MEDS: cefTRIAXone 2 GM/100 ML BAG (PRE-DOCKED) IVPB SCH (09:28)
[2016-07-22] MEDS: ACETAMINOPHEN 325 MG TABLET (FP) PO PRN ×3 (09:36→21:33)
[2016-07-22] MEDS ORDERED: CEFTRIAXONE 2 GM in DEXTROSE 5%-WATER - 100 ML IVPB SCH (10:00)
[2016-07-22] MEDS ORDERED: CEFTRIAXONE 1 GM in DEXTROSE 5%-WATER - 100 ML IVPB SCH (10:00)
[2016-07-22] MEDS ORDERED: AZITHROMYCIN IVPB 500 MG/250 ML D5W PRE-DOCKED IVPB SCH (10:00)
[2016-07-22] MEDS ORDERED: cefTRIAXone 1 GM/50 ML BAG (PRE-DOCKED) IVPB SCH (10:00)
[2016-07-22] MEDS ORDERED: AZITHROMYCIN IVPB 500 MG in DEXTROSE 5%-WATER - 250 ML IVPB SCH (10:00)
[2016-07-22] MEDS ORDERED: METHADONE HCL 10 MG TABLET PO ONE (10:22)
[2016-07-22] MEDS ORDERED: METHADONE HCL 5 MG TABLET PO ONE (10:40)
[2016-07-22] MEDS ORDERED: INSULIN (NOVOLOG) ASPART 100 UNITS/ML 10ML VIAL ONE ×3 (11:00→21:16)
--- NOTE | 2016-07-22 14:15 | EKG ---
Test Reason : Blood Pressure : / mmHG Vent. Rate : 090 BPM Atrial Rate : 090 BPM P-R Int : 142 ms QRS Dur : 090 ms QT Int : 354 ms P-R-T Axes : 040 -42 033 degrees QTc Int : 433 ms NORMAL SINUS RHYTHM POSSIBLE LEFT ATRIAL ENLARGEMENT LEFT AXIS DEVIATION LEFT VENTRICULAR HYPERTROPHY ABNORMAL ECG WHEN COMPARED WITH ECG OF 20-JUL-2016 18:49, NO SIGNIFICANT CHANGE WAS FOUND Confirmed by ONIEL BRIGGS, LIZ ([id number]) on 07/22/2016 2:15:29 PM Referred By: Confirmed By:LIZ ENGLE MD
--- NOTE | 2016-07-22 15:41 | PN ---
Teaching Attending Note Name of Resident: Maribell Gaitan ATTENDING PHYSICIAN STATEMENT I saw and evaluated the patient. I reviewed the resident's note and discussed the case with the resident. I agree with the resident's findings and plan as documented. SUBJECTIVE:continues to have cough but improved. denies CP, SOB,fever, chills, N /V/C/D OBJECTIVE: Last Vital Signs Temp Pulse Resp BP Pulse Ox 98.4 F 90 18 139/80 94 L 07/22/16 10:00 07/22/16 10:00 07/22/16 10:00 07/22/16 10:07/22/16 09:00 General NAD CV S1 S2 RRR no murmur/rub/gallop Lungs rales in bases, no crackles or wheezing ASSESSMENT AND PLAN: 65yo M with PMH continuous heroin dependence, HTN, DM, CKD stage III, presented to the ER and was admitted for further evaluation of their emergent condition 1. Sepsis due to RLL PNA- now afebrile. leukocytosis trending down. started on ceftriaxone/azithromycin in the ER. legionella is negative. will d/c azithromycin and IVF. influenza negative 2. Hyponatremia- likely from sepsis. now resolved. will d/c IVF 3. Acute microcytic anemia- likely dilutional. no signs of active bleeding. will trend for now. no indication for txn 4. Acute on CKD stage III- due to sepsis. baseline Cr 1.8. stable at this time. avoid nephrotoxic agents. good UOP 5. Continuous heroin dependence- went to [facility] for detox and now on methadone protocol. will continue protocol at this time. plan to return to [facility] when medically optimized. 6. HTN-controlled. cont acei, norvasc 7. DM- self trial of diet controlled. stated he was on oral agents which destroyed his kidneys. refuses to be on insulin. encourage iss and BGM at this time. diabetic diet 8. DVT ppx- hep sq 9. d/c planning to [facility] to complete detox once medically optimized.
[2016-07-23] MEDS: INSULIN SLIDING SCALE (NOVOLOG) 1 VIAL SQ SCH ×4 (06:16→21:13)
[2016-07-23] MEDS: METHADONE HCL 5 MG TABLET PO SCH (06:17)
[2016-07-23 08:20] LABS: MCH 28.2 pg (25.7-33.7); MCHC 33.3 g/dl (32.0-35.9); MEAN CELL VOLUME 84.6 fl (80-96); MEAN PLT VOLUME 7.6 fl (7.5-11.1); PLATELET COUNT 346 K/MM3 (134-434); RDW 13.9 % (11.9-15.9)
[2016-07-23] MEDS ORDERED: VANCOMYCIN 1 GRAM (PRE-DOCKED) 250 ML IVPB ONE (08:32)
[2016-07-23] MEDS ORDERED: PT OWN MED DRAWER 7, Y5N ONE ×2 (09:29→21:01)
[2016-07-23] MEDS: amLODIPine BESYLATE 10 MG TABLET (FP) PO SCH (09:30)
[2016-07-23] MEDS: HEPARIN NA (PORCINE) 5,000 UNITS/ML 1ML VIAL SQ SCH ×2 (09:31→21:12)
[2016-07-23] MEDS: THIAMINE HCL 100 MG TABLET (FP) PO SCH (09:31)
[2016-07-23] MEDS: LISINOPRIL 20 MG TABLET (FP) PO SCH (09:31)
[2016-07-23 09:51] LABS: CALCIUM 8.4 mg/dL (8.5-10.1); CREATININE 1.8 mg/dL (0.7-1.3)
[2016-07-23] MEDS: cefTRIAXone 2 GM/100 ML BAG (PRE-DOCKED) IVPB SCH (11:20)
--- NOTE | 2016-07-23 12:13 | PN ---
Progress Note (short form) - Note Progress Note: ID consult dictated 65 mg old man with HTN, CKD, DM, uses heroin (sniffs, denies IVDU), also left ankle surgery 02/2015- has hardware- surgery done at [facility] Dr Sherif Rojas [phone] admitted with fever, nausea and vomiting after heroine use on 07/20- he was felt to be in withdrawal and referred to our detox program who sent him to hospital with fever of 102.2 he has continued to have fever since admission left foot is swollen (he has this intermittently) vomiting fever yesterday none today received one dose of vancomycin this am denies history of HIV, or Hepatitis imp/reccd MSSA Bacteremia- r/o endocarditis, r/o infected hardware left foot repeat blood cultures esr/crp echo- r/o endocarditis nafcillin 2 q4h duplex left leg xray left ankle and foot heroin use- would offer repeat hiv testing diabetes- poorly controlled with elevated hgbaic d/w resident who will place orders
--- NOTE | 2016-07-23 13:01 | CONS ---
DATE OF CONSULTATION: DATE OF DICTATION: 07/23/2016 REQUESTING PHYSICIAN: The hospitalist service. HISTORY OF PRESENT ILLNESS: This is a 65-year-old man with a past medical history of hypertension, diabetes, chronic kidney disease. He is status post left ankle surgery in February 2015 at [facility] with Dr. Sherif Cruz who is now admitted with nausea, fever, and vomiting after heroin use on July 20. He was felt to be in withdrawal and referred to our detoxification program, who then sent him to the hospital with fever of 102.2 on July 21. He was started on ceftriaxone and Rocephin after admission. He has continued to have intermittent fever and vomiting since admission, and yesterday he was noted to have a positive blood culture with gram-positive cocci in clusters. He was given a dose of vancomycin this morning, and I am asked to see him for further evaluation. He is resting comfortably. He has no chest pain or abdominal pain. He reports having multiple screws and pins in his left ankle. He notes that the foot gets intermittently swollen. He denies any injection drug use. He denies history of HIV or hepatitis in the past. PAST MEDICAL HISTORY: Notable for heroin use, hypertension, diabetes, depression. He is followed at the [facility], where he gets his antihypertensives. FAMILY HISTORY: Notable for cancer in his brother. ALLERGIES: He has no known drug allergies. MEDICATIONS: He takes amlodipine, lisinopril as an outpatient. 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 He has no history of cigarette use. He has no history of alcohol use. He does use inhalation heroin. He denies intravenous drug use. He denies history of HIV or hepatitis A, B, or C. REVIEW OF SYSTEMS: His fever and chills have improved. His last time he vomited was yesterday. He has no abdominal pain. He denies any cough. He denies any chest pain. PHYSICAL EXAMINATION: General: He is awake and alert. Vital Signs: Current temperature is 99.1, T-max is 102.3, blood pressure is 155/90, pulse of 88, respiratory rate is 18, saturating 97%. HEENT: He is normocephalic. His eyes are anicteric. He has no conjunctival hemorrhages. He has no thrush. Neck: Supple. Abdomen: Soft, nontender. Heart: Regular rate and rhythm. I do not hear a murmur. Lungs: Clear to auscultation. Extremities: Notable for hyperpigmentation of both his legs. His left leg is swollen. He has edema of the foot. He has what I think are palpable pins in the lower ankle. There are no open skin lesions. LABORATORY DATA: His labs are notable for a white count of 16, on admission it was 19.8, hemoglobin is 10.3, platelets are 346. His BUN is 28 and creatinine 1.8. Hemoglobin A1c is 9.3. His LFTs are normal. His urinalysis has 2 white cells with 1+ blood. His RPR is nonreactive. He received a dose of vancomycin this morning. ASSESSMENT: In summary, this is a 65-year-old man with methicillin-sensitive Staphylococcus aureus bacteremia, rule out endocarditis, rule out infected hardware in his foot. I would repeat his blood cultures, check a sedimentation rate, a CRP, and an echocardiogram to rule out endocarditis. Would switch him to nafcillin 2 g q.4 hours. I would obtain a duplex of his left leg to rule out DVT given the swelling, and I would x-ray his left ankle and foot so that we can be more aware of what his prior surgery was. He has given us the name and number of his orthopedist as well if needed at [facility]. Further recommendations to follow. He is continuing on his heroin detoxification. I would advise if the patient is willing to repeat HIV testing, but he reports being HIV negative in the past. As well, he needs improved diabetes control given his elevated hemoglobin A1c. I spoke with the resident regarding his care. Thank you. SERG WORTHINGTON M.D. [id number]
[2016-07-23] MEDS: POLYETHYLENE GLYCOL 3350 119 GM BTL PO SCH ×2 (14:12→21:12)
--- NOTE | 2016-07-23 14:14 | PN ---
Teaching Attending Note Name of Resident: Maribell Gaitan ATTENDING PHYSICIAN STATEMENT I saw and evaluated the patient. I reviewed the resident's note and discussed the case with the resident. I agree with the resident's findings and plan as documented. SUBJECTIVE:currently asymptomatic. states his symptoms have resolved. denies CP , SOB, fever, chills, N/V/C/D denies IVDA recent or remote (snorts heroin) OBJECTIVE: Last Vital Signs Temp Pulse Resp BP Pulse Ox 99.1 F 88 18 155/90 97 07/23/16 08:50 07/23/16 08:50 07/23/16 08:50 07/23/16 08:50 07/23/16 08:50 General NAD CV S1 S2 RRR no murmur/rub/gallop Lungs rales in bases, no crackles or wheezing ASSESSMENT AND PLAN: 65yo M with PMH continuous heroin dependence, HTN, DM, CKD stage III, presented to the ER and was admitted for further evaluation of their emergent condition 1. Sepsis due to RLL PNA- Tm 102.3 on Ceftriaxone day 3. clinically improving. will cont current managment. 2. bacteremia with suspicion for MRSA- Vanco 1g x1 now. will need to determine source of infection. check echo. ID consult. f/u official cultures 3. Hyponatremia- likely from sepsis. 4. Acute microcytic anemia- likely dilutional. no signs of active bleeding. will trend for now. no indication for txn 5. Acute on CKD stage III- due to sepsis. baseline Cr 1.8. now at baseline. avoid nephrotoxic agents. good UOP 6. Continuous heroin dependence- went to [facility] for detox and now on methadone protocol. will continue protocol at this time. plan to return to [facility] when medically optimized. 7. HTN-controlled. cont acei, norvasc 8. DM- self trial of diet controlled. stated he was on oral agents which destroyed his kidneys. refuses to be on insulin. encourage iss and BGM at this time. diabetic diet 9. DVT ppx- hep sq
--- NOTE | 2016-07-23 15:16 | PN ---
Physical Exam: SUBJECTIVE: Patient seen and examined Patient resting in bed, nad. afebrile and hemodynamically stable. Fever 101 at 8 pm and night sweats. States that he feels well and that his cough resolved. rhinorrhea resolved as well. states that he is conserned about L foot that was operated on by ortho with myltiple pin placement in 2014 and has been swollen for the past 2-3 weeks. He reports mild pain. He denies chest pain, sob, h/a, f/ c, n/n, abd pain. he reports constipation x5 d OBJECTIVE: Vital Signs Period Temp Pulse Resp BP Sys/Henry Pulse Ox Last 24 Hr 99.0 F-102.3 F 88-104 18-21 140-155/83-90 97-98 GENERAL: Awake, alert, and fully oriented, NAD HEAD: atraumatic EYES: Perrla, EIOMI, conjunctiva clear EARS, NOSE, THROAT: Moist mucous membranes. NECK: Supple. LUNGS: cta b/l HEART: Regular rate and rhythm, normal S1 and S2 ABDOMEN: mildly distended, obese, non tender, normoactive bowel sounds, no hepatomegaly or splenomegaly MUSCULOSKELETAL: No CVA tenderness. UPPER EXTREMITIES: 2+ pulses, warm, well-perfused. No peripheral edema. LLE: foot very swollen, no lesions, 2+ DP RLE:2+ pulses, warm, well-perfused. No edema. NEUROLOGICAL: Cranial nerves II-XII intact. Normal speech. Gait not observed. PSYCHIATRIC: Cooperative. Good eye contact. Appropriate mood and affect. SKIN: Warm, dry Laboratory Results - last 24 hr 07/22/16 07/22/16 07/23/16 16:20 21:05 06:15 WBC RBC Hgb Hct MCV MCHC RDW Plt Count MPV Sodium Potassium Chloride Carbon Dioxide Anion Gap BUN Creatinine POC Glucometer 159 200 165 Random Glucose Calcium 07/23/16 07/23/16 07/23/16 06:30 06:30 11:20 WBC 16.0 H RBC 3.64 L Hgb 10.3 L Hct 30.8 L MCV 84.6 MCHC 33.3 RDW 13.9 Plt Count 346 D MPV 7.6 Sodium 136 Potassium 4.0 Chloride 101 Carbon Dioxide 21 Anion Gap 14 BUN 28 H Creatinine 1.8 H POC Glucometer 228 Random Glucose 174 H Calcium 8.4 L Active Medications Generic Name Dose Route Start Last Admin Trade Name Freq PRN Reason Stop Dose Admin Acetaminophen 650 mg 07/22/16 07:48 07/22/16 21:33 Tylenol - PO 650 mg Q4H PRN Administration FEVER OR PAIN Amlodipine Besylate 10 mg 07/22/16 10:00 07/23/16 09:30 Norvasc - PO 10 mg DAILY JAYLIN Administration Heparin Sodium (Porcine) 5,000 unit 07/21/16 22:00 07/23/16 09:31 Heparin - SQ Not Given BID [facility] Nafcillin Sodium 2 gm/ Sodium 100 mls @ 100 mls/hr 07/23/16 14:00 Chloride IVPB Q4H-IV JAYLIN Insulin Aspart 1 vial 07/22/16 07:00 07/23/16 11:21 Novolog Vial Sliding Scale - SQ 4 unit ACHS JAYLIN Administration Protocol Lisinopril 40 mg 07/22/16 10:00 07/23/16 09:31 Prinivil PO 40 mg DAILY JAYLIN Administration Methadone HCl 15 mg 07/23/16 06:00 07/23/16 06:17 Dolophine - PO 07/24/16 23:59 15 mg DAILY@0600 JAYLIN Administration Methadone HCl 10 mg 07/25/16 10:00 Dolophine - PO 07/25/16 10:01 ONCE ONE Methadone HCl 5 mg 07/26/16 10:00 Dolophine - PO 07/26/16 10:01 ONCE ONE Ondansetron HCl 4 mg 07/21/16 22:32 Zofran Injection IVPB Q6H PRN NAUSEA Polyethylene Glycol 17 gm 07/23/16 11:45 07/23/16 14:12 Miralax (For Daily Use) - PO Not Given BID [facility] Thiamine HCl 100 mg 07/22/16 10:00 07/23/16 09:31 Vitamin B1 - PO 100 mg DAILY JAYLIN Administration ASSESSMENT/PLAN: This is a 65 year old male with significant PMH of Heroin dependence detox, Hypertension, DM II, Cataract, Depression and CKD stage III, who presented to the ED with the chief complaint of cold, fever, cough x 1 day. Nonsmoker but inhales heroin Sepsis -CXR admission right lower lobe infiltrate -fever recurring on rocephin, was on zosyn yesterday, s/p one dose vanco today -leukocytosis 16 platoed -one/2 blood cultures growing gram + cocci in clusters -Influenza negative -Sputum for culture p/d -s/p ID consult -lakesha source is hardware in L foot; unlikely pulmonary -gram + bacteremia -repeat blood cultures -TTE -sed rate, crp -Duplex LLE -Xray L foot -stop rocephin, stary nafcillin 2g Q4h -Contact orto surgeon (in ID note, once x ray information comes back) Heroin abuse -On detox for Heroin abuse at [facility]. -mission [facility] u tox: Positive for Opiates, heroine, Benzodiazepine -Methadone 15 mg x 2 days, 10 mg x 1 day and 5 mg x 1 day; confirmed MORGAN with CKD stage III -creat 1.8 trending down Hyponatremia -resolved DM2 -previously on metformin but d/cd due to ckd -HbA1c ordered -sliding scale -fingerstick achs HTN -Amlodipine 10mg and Lisinopril 40mg Depression -denies being depressed at this time FEN no fluids lytes stable DVT GI PPX: hep, diet Diabetic diet Monitor in Med Surg Problem List - Problems (1) Sepsis Code(s): A41.9 - SEPSIS, UNSPECIFIED ORGANISM (2) Foreign body with infection Code(s): VRJ4195 - Visit type - Emergency Visit Emergency Visit: Yes ED Registration Date: 07/21/16 Care time: The patient presented to the Emergency Department on the above date and was hospitalized for further evaluation of their emergent condition. - New Patient This patient is new to me today: No - Critical Care Critical Care patient: No - Discharge Referral Referred to [facility] Med P.C.: No
[2016-07-23] MEDS: NAFCILLIN - 2 GM in SODIUM CHLORIDE 100 ML IVPB SCH ×3 (16:11→21:12)
[2016-07-23] MEDS: ONDANSETRON 4 MG/2 ML VIAL IVPB PRN (17:14)
--- NOTE | 2016-07-23 22:10 | HOSP ---
Physical Examination Vital Signs: Vital Signs Temperature 99 F 07/23/16 14:00 Pulse Rate 90 07/23/16 18:00 Respiratory Rate 18 07/23/16 18:00 Blood Pressure 150/80 07/23/16 18:00 O2 Sat by Pulse Oximetry (%) 97 07/23/16 08:50 Labs: CBC, BMP 07/23/16 06:30 07/23/16 06:30 Hospitalist Encounter Assessment: Was paged by the nurse to inform that patient would like to get Methadone as he is having withdrawals. A/c to the patient, he has nausea, had several episodes of vomiting this evening hence couldn't eat dinner, has headache, sweating, is irritable. Denies loc, dizziness, chest pain, sob, palpitation, cough or abdominal pain. Vitals: BP- 135/85 P-92 RR-20 Temp-100.1 F after receiving 2 tylenol 2 hours ago. Examination: GENERAL: Patient lying in bed in propped up position, vomiting, Awake, alert, and fully oriented, in no acute distress. HEAD: Normal with no signs of trauma. EYES: EOM intact, no pallor or icterus. EARS, NOSE, THROAT: Ears normal. Moist mucous membranes. NECK: Supple. LUNGS: B/L equal air entry. No wheezes, and no crackles. No accessory muscle use. HEART: Regular rate and rhythm, normal S1 and S2 without murmur. ABDOMEN: Tense +, distended+, non tender, normoactive bowel sounds, guarding +, no rebound, no masses. Hepatosplenomegaly couldn't be appreciated. MUSCULOSKELETAL: Normal range of motion at all joints. No bony deformities or tenderness. No CVA tenderness. UPPER EXTREMITIES: 2+ pulses, warm, well-perfused. No cyanosis. No clubbing. No peripheral edema. LOWER EXTREMITIES: Left Boot in place Right lower extremity: Scaly dermatitis, 2+ pulses, warm, well-perfused. No edema. NEUROLOGICAL: Cranial nerves II-XII intact. Normal speech. Gait not observed. PSYCHIATRIC: Cooperative. Good eye contact. Appropriate mood and affect. SKIN: Warm, dry, normal turgor, no rashes or lesions noted. A/P Most likely has opiate withdrawal Patient received 15mg of Methadone this am but still having withdrawals. Will give 10mg of Methadone stat. Patient verbalized understanding of his condition. Case discussed with Dr. Ornelas. Visit type - Emergency Visit Emergency Visit: Yes ED Registration Date: 07/21/16 Care time: The patient presented to the Emergency Department on the above date and was hospitalized for further evaluation of their emergent condition. - New Patient This patient is new to me today: No - Critical Care Critical Care patient: No
[2016-07-23] MEDS ORDERED: METHADONE HCL 10 MG TABLET (FOR DETOX USE ONLY) PO ONE ×2 (22:13→22:30)
[2016-07-23] MEDS ORDERED: METHADONE HCL 10 MG TABLET PO ONE (22:30)
[2016-07-24] MEDS: NAFCILLIN - 2 GM in SODIUM CHLORIDE 100 ML IVPB SCH ×4 (02:22→13:53)
[2016-07-24] MEDS: INSULIN SLIDING SCALE (NOVOLOG) 1 VIAL SQ SCH ×4 (06:14→21:51)
[2016-07-24] MEDS: METHADONE HCL 5 MG TABLET PO SCH (06:14)
[2016-07-24] MEDS: HEPARIN NA (PORCINE) 5,000 UNITS/ML 1ML VIAL SQ SCH ×2 (09:56→21:52)
[2016-07-24] MEDS: POLYETHYLENE GLYCOL 3350 119 GM BTL PO SCH ×2 (09:56→21:52)
[2016-07-24] MEDS ORDERED: INSULIN (NOVOLOG) ASPART 100 UNITS/ML 10ML VIAL ONE ×2 (09:57→21:48)
[2016-07-24] MEDS: THIAMINE HCL 100 MG TABLET (FP) PO SCH (10:06)
[2016-07-24] MEDS: LISINOPRIL 20 MG TABLET (FP) PO SCH (10:06)
[2016-07-24] MEDS: amLODIPine BESYLATE 10 MG TABLET (FP) PO SCH (10:06)
[2016-07-24] MEDS: ONDANSETRON 4 MG/2 ML VIAL IVPB PRN (10:17)
[2016-07-24] MEDS: Methylnaltrexone Bromide 12 MG/0.6 ML KIT SQ SCH (13:53)
--- NOTE | 2016-07-24 14:32 | PN ---
Progress Note (short form) - Note Progress Note: patient reports nausea with iv nafcillin- this am and again now refusing further antibiotic c/o abdominal pain midepigastric constipation Vital Signs Period Temp Pulse Resp BP Sys/Henry Pulse Ox Last 24 Hr 98.5 F-101 F 81-98 16-20 135-152/78-96 97 cor-rrr lungs clear abd soft, midepigastric discomfort to palpation ext left foot swelling unchanged CBC, BMP 07/23/16 06:30 07/23/16 06:30 Laboratory Tests 07/23/16 07/23/16 16:45 16:45 ESR > 130 H C-Reactive Protein 21.6 H Microbiology 07/22/16 07:55 Sputum - Expectorated Gram Stain - Final 07/22/16 07:55 Sputum - Expectorated Sputum Culture - Final NORMAL RESPIRATORY CHARLENE 07/21/16 16:45 Blood - Peripheral Venous Blood Culture - Final Staphylococcus Aureus 07/21/16 16:26 Blood - Peripheral Venous Blood Culture - Preliminary NO GROWTH OBTAINED AFTER 48 HOURS, INCUBATION TO CONTINUE FOR 3 DAYS. 07/21/16 16:47 Urine - Urine Clean Catch Urine Culture - Final NO GROWTH OBTAINED 07/22/16 07:55 Urine For Antigen Detection Legionella Antigen - Final 07/22/16 07:55 Urine For Antigen Detection Streptococcus pneumoniae Antigen (M - Final 07/21/16 16:27 Nasopharyngeal Swab Respiratory Virus Panel - Preliminary 07/21/16 16:27 Nasopharyngeal Swab Influenza Types A,B Antigen (NOE) - Final 07/21/16 16:27 Nasopharyngeal Swab - Final duplex no dvt a/p MSSA bacteremia- r/o endocarditis, r/o infected hardware repeat blood cultures pending switch to cefazolin, refusing nafcillin abd pain/vomiting/constipation- check lipase, xray abd substance use refused xray of foot/ankle! d/w hospitalist
--- NOTE | 2016-07-24 14:51 | PN ---
Progress Note (short form) - Note Progress Note: c/o nausea and abdominal pain. states it started yesterday with medication we gave him. improved with pain medication. when questioned about what occurred in the evening with "withdrawal symptoms" he stated that we are not giving the right amount of methadone. that we are only giving "1mg" denies CP, V/C/D, fever, chills Current Medications Generic Name Dose Route Start Last Admin Trade Name Freq PRN Reason Stop Dose Admin Acetaminophen 650 mg 07/22/16 07:48 07/22/16 21:33 Tylenol - PO 650 mg Q4H PRN Administration FEVER OR PAIN Amlodipine Besylate 10 mg 07/22/16 10:00 07/24/16 10:06 Norvasc - PO 10 mg DAILY JAYLIN Administration Heparin Sodium (Porcine) 5,000 unit 07/21/16 22:00 07/24/16 09:56 Heparin - SQ Not Given BID JAYLIN Cefazolin Sodium 2 gm/ 50 mls @ 200 mls/hr 07/24/16 18:00 Dextrose IVPB Q8H-IV JAYLIN Insulin Aspart 1 vial 07/22/16 07:00 07/24/16 10:31 Novolog Vial Sliding Scale - SQ 4 unit ACHS JAYLIN Administration Protocol Lisinopril 40 mg 07/22/16 10:00 07/24/16 10:06 Prinivil PO 40 mg DAILY JAYLIN Administration Methadone HCl 10 mg 07/25/16 10:00 Dolophine - PO 07/25/16 10:01 ONCE ONE Methadone HCl 5 mg 07/26/16 10:00 Dolophine - PO 07/26/16 10:01 ONCE ONE Methylnaltrexone [place] 8 mg 07/24/16 10:00 07/24/16 13:53 Relistor - SQ 8 mg DAILY JAYLIN Administration Ondansetron HCl 4 mg 07/21/16 22:32 07/24/16 10:17 Zofran Injection IVPB 4 mg Q6H PRN Administration NAUSEA Polyethylene Glycol 17 gm 07/23/16 11:45 07/24/16 09:56 Miralax (For Daily Use) - PO Not Given BID JAYLIN Thiamine HCl 100 mg 07/22/16 10:00 07/24/16 10:06 Vitamin B1 - PO 100 mg DAILY JAYLIN Administration Last Vital Signs Temp Pulse Resp BP Pulse Ox 98.5 F 83 16 151/93 97 07/24/16 13:34 07/24/16 13:34 07/24/16 06:00 07/24/16 13:34 07/23/16 21:00 refused auscultation General NAD abdomen soft NT/ND refused labs this AM ASSESSMENT AND PLAN: 65yo M with PMH continuous heroin dependence, HTN, DM, CKD stage III, presented to the ER and was admitted for further evaluation of their emergent condition 1. Sepsis due to RLL PNA- Tm 101. received 3 days of Ceftriaxone and d/c as pt placed on Nafcillin. 2. MSSA bacteremia - received vanco x1. once cx reported as MSSA started on Nafcillin, appears pt may not be tolerating at this time and switched to Cefazolin. Echo with no vegetations appreciated. refused XR of his foot as "its fine". agreed to allow XR come bedside to take image. explained this will not give the best view and may require further imaging. repeat BCx pending. ESR high and high risk of OM. 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 f/u Cx 3. Nausea- possibly abx induced. check AXR. check lipase. agreed to labs will re -order. offered anti-emetics and alternate pain medication (motrin). 4. Acute microcytic anemia- likely dilutional. no signs of active bleeding. will trend for now. no indication for txn 5. Acute on CKD stage III- due to sepsis. baseline Cr 1.8. now at baseline. avoid nephrotoxic agents. good UOP 6. Continuous heroin dependence- went to [facility] for detox and now on methadone protocol. will continue protocol at this time. plan to return to [facility] when medically optimized. 7. HTN-controlled. cont acei, norvasc 8. DM- refusing to go home on insulin at this time. will cover with long acting insulin. cont iss, BGM 9. DVT ppx- hep sq Visit type - Emergency Visit Emergency Visit: Yes ED Registration Date: 07/21/16 Care time: The patient presented to the Emergency Department on the above date and was hospitalized for further evaluation of their emergent condition. - New Patient This patient is new to me today: No - Critical Care Critical Care patient: No - Discharge Referral Referred to [facility] Med P.C.: No
[2016-07-24 17:15] LABS: CALCIUM 8.4 mg/dL (8.5-10.1)
[2016-07-24] MEDS: CEFAZOLIN 2 GM/D5W 50 ML IVPB SCH (17:31)
--- NOTE | 2016-07-24 17:39 | HOSP ---
Subjective - Review of Symptoms Subjective: AXR reviewed and appears to have ileus. went to assess pt, continues to refuse abdominal exam. states no BM since admission but is passing flatus. Went to discuss with patient, explained finding and NGT placement is needed at this time explained risks if NGT not placed, pt verbalized understanding or risks but refused -NPO -suppository and lactulose TID -toradol for pain, explained to pt risk of opiates for pain. aware of kidney function, will give 1x dose -will monitor closely, any worsen in condition and will order CT Physical Examination Vital Signs: Vital Signs Temperature 98.5 F 07/24/16 13:34 Pulse Rate 83 07/24/16 13:34 Respiratory Rate 16 07/24/16 06:00 Blood Pressure 151/93 07/24/16 13:34 O2 Sat by Pulse Oximetry (%) 97 07/23/16 21:00 Labs: CBC, BMP 07/23/16 06:30 07/24/16 16:10
[2016-07-24] MEDS ORDERED: BISACODYL 10 MG SUPP.RECT PR ONE (17:40)
[2016-07-24] MEDS ORDERED: KETOROLAC TROMETHAMINE 15 MG/ML VIAL IVPUSH ONE (17:44)
[2016-07-24] MEDS: DEXTROSE 5%-WATER - 1,000 ML IV SCH (18:37)
[2016-07-24] MEDS: LACTULOSE 20 GM/30 ML UDC (FOR ORAL USE ONLY) PO SCH (21:53)
[2016-07-24] MEDS ORDERED: LABETALOL HCL 100 MG TABLET (FP) PO ONE (23:43)
[2016-07-24] MEDS ORDERED: METOPROLOL SUCCINATE 25 MG TAB.SR.24H (FP) PO ONE (23:52)
--- NOTE | 2016-07-25 | HOSP ---
Addendum entered and electronically signed by Shani Chavez RES 07/25/16 05 :54: Patient to be transferred to [facility] for continuous cardiac monitoring. Addendum entered and electronically signed by Shani Chavez RES 07/25/16 05 :44: Repeat Blood pressure @ 5:42am BP 204/118 mmHg, HR 86. Will give Amlodipine PO 10mg now. Addendum entered and electronically signed by Shani Chavez RES 07/25/16 02 :30: Repeat Blood pressure @ 2am 194/117 mmHg; HR 93. Patient feels much better, looks calm. Nausea, vomiting, tremor has resolved. Will give him 25mg PO Metoprolol stat for BP. Original Note: Physical Examination Vital Signs: Vital Signs Temperature 98.1 F 07/24/16 17:36 Pulse Rate 82 07/24/16 17:36 Respiratory Rate 20 07/24/16 21:00 Blood Pressure 150/90 07/24/16 17:36 O2 Sat by Pulse Oximetry (%) 95 07/24/16 21:00 Labs: CBC, BMP 07/23/16 06:30 07/24/16 16:10 Hospitalist Encounter Assessment: Was informed by the nurse that the patients BP is 206/118mmHg. Repeat BP on both arms: Right 196/104 mmHg and on the Left 201/116 mmHg. Went to examine the patient, he was feeling nauseous and vomiting. He had tremors, was irritable. Looked like he is having heroin withdrawal. COWS score- SCORE 1. Pulse 110 2 2. Sweating 2 3. Reslessness 1 4. Pupil size 2 5. Bone pain 0 6. Runny nose 2 7. GI upset 3 8. Tremor 2 9. [place] 0 10. Anxious 0 Total score- 14 A/P 1. Patient has moderate withdrawal of opiates. IV Zofran 4mg Stat PO Methadone 10mg stat PO Metoprolol 25mg stat (confirmed with the patient he hasn't taken cocaine in the past. U. tox not positive for cocaine) Repeat BP If blood pressure continues to rise, may consider CT head to r/o SAH. Illness and plan of care explained to the patient. He verbalized understanding. Case discussed with Dr. Koroma. Visit type - Emergency Visit Emergency Visit: Yes ED Registration Date: 07/21/16 Care time: The patient presented to the Emergency Department on the above date and was hospitalized for further evaluation of their emergent condition. - New Patient This patient is new to me today: No - Critical Care Critical Care patient: No
[2016-07-25] MEDS ORDERED: ONDANSETRON 4 MG/2 ML VIAL IVPB ONE (00:05)
[2016-07-25] MEDS ORDERED: METHADONE HCL 10 MG TABLET PO ONE ×2 (00:30→10:00)
[2016-07-25] MEDS ORDERED: METHADONE HCL 10 MG TABLET (FOR DETOX USE ONLY) PO ONE (00:30)
[2016-07-25] MEDS: CEFAZOLIN 2 GM/D5W 50 ML IVPB SCH ×3 (01:58→18:52)
[2016-07-25] MEDS ORDERED: METOPROLOL SUCCINATE 25 MG TAB.SR.24H (FP) PO ONE ×2 (02:30→03:00)
--- NOTE | 2016-07-25 05:52 | HOSP ---
Subjective - Review of Symptoms Subjective: Pt. being transferred to [facility] for HTN, Urgency - Will give AM dose if Amlodipine early, Asyx, Physical Examination Vital Signs: Vital Signs Temperature 98.3 F 07/25/16 05:30 Pulse Rate 86 07/25/16 05:30 Respiratory Rate 16 07/25/16 05:30 Blood Pressure 204/118 07/25/16 05:30 O2 Sat by Pulse Oximetry (%) 95 07/24/16 21:00 Labs: CBC, BMP 07/23/16 06:30 07/24/16 16:10
[2016-07-25] MEDS: amLODIPine BESYLATE 10 MG TABLET (FP) PO SCH ×2 (06:14→11:12)
[2016-07-25] MEDS: INSULIN SLIDING SCALE (NOVOLOG) 1 VIAL SQ SCH ×4 (06:50→21:35)
[2016-07-25] MEDS: LACTULOSE 20 GM/30 ML UDC (FOR ORAL USE ONLY) PO SCH ×3 (06:51→21:34)
[2016-07-25] MEDS ORDERED: METHADONE HCL 5 MG TABLET PO ONE (09:50)
[2016-07-25] MEDS: ONDANSETRON 4 MG/2 ML VIAL IVPB PRN (10:34)
--- NOTE | 2016-07-25 11:03 | PN ---
Teaching Attending Note Name of Resident: Maribell Gaitan ATTENDING PHYSICIAN STATEMENT I saw and evaluated the patient. I reviewed the resident's note and discussed the case with the resident. I agree with the resident's findings and plan as documented. SUBJECTIVE:continues to feel nauseated however requesting to drink juice. states he had large BM last night. stated that he feels like he is withdrawing from heroin and requesting more methadone. denies CP, SOB,fever, chills, hallucinations, V/C/D OBJECTIVE: Last Vital Signs Temp Pulse Resp BP Pulse Ox 98.3 F 86 16 204/118 95 07/25/16 05:30 07/25/16 05:30 07/25/16 05:30 07/25/16 05:30 07/24/16 21:00 General NAD Abdomen soft NT/ND hypoactive BS. +tympanic obese ASSESSMENT AND PLAN: 65yo M with PMH continuous heroin dependence, HTN, DM, CKD stage III, presented to the ER and was admitted for further evaluation of their emergent condition 1. Ileus- possible opiate induced. refusing NGT. had large BM yesterday. will obtain AXR and assess if ileus is improving. if is will advance to clear liquid diet. cont NPO for now 2. MSSA bacteremia -afebrile. XR obtained and reviewed. would need to obtain MRI of the foot to r/o OM. pt refusing MRI at this time, he states he does not want any therapy for his foot and that he will f/u with his own doctor. will reach out to orthopedist who performed initial surgery. on Cefazolin day 2. repeat BCx negative. 4. Acute microcytic anemia- likely dilutional. no signs of active bleeding. will trend for now. no indication for txn 5. Acute on CKD stage III- due to sepsis. baseline Cr 1.8. now at baseline. avoid nephrotoxic agents. good UOP 6. Continuous heroin withdrawal-on methadone detox however continues to claim he is withdrawing. given extra 5mg dose. as nausea is likely more related to ileus than withdrawls. will request Dr Puneet Davis to adjust methadone protocol. 7. HTN-uncontrolled. likely pain induced. AM labs given early. will start clonidine as this will also symptomatically assist in "withdrawals" cont acei, norvasc 8. DM- refusing to go home on insulin at this time. will cover with long acting insulin. cont iss, BGM 9. DVT ppx- hep sq
[2016-07-25] MEDS ORDERED: cloNIDine HCL 0.1 MG TABLET ONE (11:04)
[2016-07-25] MEDS: cloNIDine HCL 0.1 MG TABLET PO SCH ×3 (11:06→21:33)
[2016-07-25] MEDS: LISINOPRIL 20 MG TABLET (FP) PO SCH (11:11)
[2016-07-25] MEDS: POLYETHYLENE GLYCOL 3350 119 GM BTL PO SCH ×2 (11:12→21:34)
--- NOTE | 2016-07-25 11:21 | PN ---
Physical Exam: SUBJECTIVE: Patient seen and examined OBJECTIVE: Vital Signs Period Temp Pulse Resp BP Sys/Henry Pulse Ox Last 24 Hr 98.1 F-99.2 F 82-109 16-20 150-204/90-118 95-95 GENERAL: The patient is awake, alert, and fully oriented, in no acute distress. HEAD: Normal with no signs of trauma. EYES: PERRL, extraocular movements intact, sclera anicteric, conjunctiva clear. No ptosis. ENT: Ears normal, nares patent, oropharynx clear without exudates, moist mucous membranes. NECK: Trachea midline, full range of motion, supple. LUNGS: Breath sounds equal, clear to auscultation bilaterally, no wheezes, no crackles, no accessory muscle use. HEART: Regular rate and rhythm, S1, S2 without murmur, rub or gallop. ABDOMEN: Soft, nontender, nondistended, normoactive bowel sounds, no guarding, no rebound, no hepatosplenomegaly, no masses. EXTREMITIES: 2+ pulses, warm, well-perfused, no edema. NEUROLOGICAL: Cranial nerves II through XII grossly intact. Normal speech, gait not observed. PSYCH: Normal mood, normal affect. SKIN: Warm, dry, normal turgor, no rashes or lesions noted Laboratory Results - last 24 hr 07/24/16 07/24/16 07/25/16 16:10 21:46 06:37 Sodium 138 Potassium 3.7 Chloride 99 Carbon Dioxide 25 Anion Gap 14 BUN 26 H Creatinine 2.0 H POC Glucometer 241 233 Random Glucose 181 H Calcium 8.4 L Lipase 60 L Active Medications Generic Name Dose Route Start Last Admin Trade Name Estefany PRN Reason Stop Dose Admin Acetaminophen 650 mg 07/22/16 07:48 07/22/16 21:33 Tylenol - PO 650 mg Q4H PRN Administration FEVER OR PAIN Amlodipine Besylate 10 mg 07/25/16 05:44 07/25/16 06:14 Norvasc - PO 10 mg DAILY JAYLIN Administration Clonidine 0.1 mg 07/25/16 09:00 07/25/16 11:06 Catapres - PO 0.1 mg TID JAYLIN Administration Heparin Sodium (Porcine) 5,000 unit 07/21/16 22:00 07/24/16 21:52 Heparin - SQ Not Given BID JAYLIN Cefazolin Sodium/Dextrose 50 mls @ 200 mls/hr 07/24/16 18:00 07/25/16 10:07 Ancef 2 Gm Premixed Ivpb - IVPB 200 mls/hr Q8H-IV JAYLIN Administration Dextrose 1,000 mls @ 42 mls/hr 07/24/16 17:45 07/24/16 18:37 D5w - IV 42 mls/hr ASDIR JAYLIN Administration Insulin Aspart 1 vial 07/22/16 07:00 07/25/16 06:50 Novolog Vial Sliding Scale - SQ 4 unit ACHS JAYLIN Administration Protocol Lactulose 20 gm 07/24/16 22:00 07/25/16 06:51 Cephulac (Oral Use) PO Not Given TID JAYLIN Lisinopril 40 mg 07/22/16 10:00 07/24/16 10:06 Prinivil PO 40 mg DAILY JAYLIN Administration Methadone HCl 5 mg 07/26/16 10:00 Dolophine - PO 07/26/16 10:01 ONCE ONE Methylnaltrexone [place] 8 mg 07/24/16 10:00 07/24/16 13:53 Relistor - SQ 8 mg DAILY JAYLIN Administration Ondansetron HCl 4 mg 07/21/16 22:32 07/25/16 10:34 Zofran Injection IVPB 4 mg Q6H PRN Administration NAUSEA Polyethylene Glycol 17 gm 07/23/16 11:45 07/25/16 11:12 Miralax (For Daily Use) - PO 17 grams BID JAYLIN Administration Thiamine HCl 100 mg 07/22/16 10:00 07/24/16 10:06 Vitamin B1 - PO 100 mg DAILY JAYLIN Administration ASSESSMENT/PLAN: Problem List - Problems (1) Sepsis Code(s): A41.9 - SEPSIS, UNSPECIFIED ORGANISM (2) Foreign body with infection Code(s): [id number] -
[2016-07-25] MEDS ORDERED: INSULIN (NOVOLOG) ASPART 100 UNITS/ML 10ML VIAL ONE (12:09)
[2016-07-25] MEDS: THIAMINE HCL 100 MG TABLET (FP) PO SCH (12:12)
[2016-07-25] MEDS: HEPARIN NA (PORCINE) 5,000 UNITS/ML 1ML VIAL SQ SCH ×2 (12:15→21:34)
[2016-07-25] MEDS: Methylnaltrexone Bromide 12 MG/0.6 ML KIT SQ SCH (12:15)
--- NOTE | 2016-07-25 13:01 | DS ---
Physical Exam: SUBJECTIVE: Patient seen and examined Patient resting in bed, uncomfortable. afebrile. HTN poorly controlled overnight 204/118, unresponsive to daily meds and labetalol. He feels nauseous, has rhonerrhea and aches. frewuently asking for more methadone and threatening to leave AMA if methadone not goven. explained the foot x ray was inconclusiove for foot infection and offered MRI. Patient refusing MRI. He is asking for juice and soup. Had large nonbloody nonmelenous BM this morning. Denies f/c, chest pain, sob, abd pain or dysuria. OBJECTIVE: Vital Signs Period Temp Pulse Resp BP Sys/Henry Pulse Ox Last 24 Hr 98.1 F-99.2 F 82-109 16-20 150-204/90-118 95-95 PHYSICAL EXAM GENERAL: Awake, alert, and fully oriented, NAD HEAD: atraumatic EYES: Perrla, EIOMI, conjunctiva clear EARS, NOSE, THROAT: Moist mucous membranes. NECK: Supple. LUNGS: cta b/l HEART: Regular rate and rhythm, normal S1 and S2 ABDOMEN: mildly distended, obese, non tender, normoactive bowel sounds, no hepatomegaly or splenomegaly, full ascending colon. MUSCULOSKELETAL: No CVA tenderness. UPPER EXTREMITIES: 2+ pulses, warm, well-perfused. No peripheral edema. LLE: edematous, defomed, no lesions, 2+ DP RLE:2+ pulses, warm, well-perfused. No edema. NEUROLOGICAL: Cranial nerves II-XII intact. Normal speech. Gait not observed. PSYCHIATRIC: Cooperative. Good eye contact. Appropriate mood and affect. SKIN: Warm, dry LABS Laboratory Results - last 24 hr 07/24/16 07/24/16 07/25/16 16:10 21:46 06:37 Sodium 138 Potassium 3.7 Chloride 99 Carbon Dioxide 25 Anion Gap 14 BUN 26 H Creatinine 2.0 H POC Glucometer 241 233 Random Glucose 181 H Calcium 8.4 L Lipase 60 L 07/25/16 12:04 Sodium Potassium Chloride Carbon Dioxide Anion Gap BUN Creatinine POC Glucometer 243 Random Glucose Calcium Lipase HOSPITAL COURSE: Date of Admission:07/21/16 65 year old male presented to the ED with the chief complaint of cold, fever, cough x 1 day. A/c to the patient, he was in the rehab for more than 20 hours yesterday and started feeling unwell. Initially started with runny nose, productive cough producing whitish sputum. It was associated with fever (not recorded), chills, rigors and sweating. Patient reports to have nausea and few episodes of vomiting yesterday, containing food particles, no blood noticed. 1 episode of vomiting during examination in the ED. No abdominal pain, chest pain , palpitation. Patient mentions he has dizziness along with headache, frontal area, on/off. Denies LOC. Lives with . This is a 65 year old male with significant PMH of Heroin dependence detox, Hypertension, DM II, Cataract, Depression and CKD stage III, who presented to the ED with the chief complaint of cold, fever, cough x 1 day. Nonsmoker but inhales heroin. he was admitted for sepsis. It was initially thougt that the source was pulmonary because CXR on admission showed possible right lower lobe infiltrate, however he remained febrile on rocephin and azithro and grew MSSA in 1 out of 2 culture vottles. ID was consulted and assessed the source to most likely behis Left foot, whihc was edematous and deformed for several weeks. He was given IV nafcillin, whihc he refused so it was switched to cefazolin. Foot X ray was done that showed charcot deformity and soft tissue edema as well as possible osteomyelitis. Patient refused foot MRI. He was sexplained the need to see an orthopedic surgeon who previously operated on him. He was constipated for 5 days and finally had a large BM on day of discharge, however due to his nausea, vomiting and abd discomfort several x rays were done that were consistent with small bowel obstruction. He refused abd CT. On 07/25 overnight his BP was very high 204/118, and clonidine was added to his medications 0.1 tid. He frequently asked for more methadone and threatened to elave AMA if methadone was not given. Detox specialis, who initially placed him on methadone taper was called and he advised not to gove patient extra methadone. patient signed out AMA despite deing explained all the associated risks. He was urged to follow up with PCP and ortho surgeon talia. Date of Discharge: 07/25/16 Minutes to complete discharge: 30 (na) Discharge Summary Reason For Visit: FEVER Current Active Problems Foreign body with infection (Acute) Pneumonia (Acute) Sepsis (Acute) Condition: Fair - Instructions Diet, Activity, Other Instructions: You were admitted due to Sepsis (severe infection in your blood). The source of the infection is probably your left foot. You blood grew bacteria MSSA. we treated you with Intravenous antibiotics but you did not finish the course because you left against medical advice. We urge you to see your orthopedic surgeon withing the next few days and follow his recommendations, [facility] may include MRI of the foot. We did an X ray of yoru Left foot that showed signs of inflammation and deformity. You may have a small bowel obstruction at this time based on 2 x rays that we did. please follow up with your primary care physician as soon as possible. You finished a methadone taper and we recommend for you to follow up in outpatient rehab for further addiction support You have had very garrick blood pressure in the hospital. Clonidine 0.1 three times a day was added to your blood pressure regimen and was sent to your pharmacy. We also advise you to speak to PCP about diabetic management. Return to the hospital if symptoms worsen. . Referrals: Sherif Cruz [Non Staff, Medical] - 1 Week STAFF,NOT ON [Primary Care Provider] - 1 Week Seth Morales MD [Staff Physician] - 1 Week Disposition: AGAINST MEDICAL ADVICE - Home Medications Comprehensive Discharge Medication List: Ambulatory Orders Amlodipine Besylate [Norvasc -] 10 mg PO DAILY 07/20/16 Lisinopril [Prinivil] 40 mg PO DAILY 07/20/16 Methadone HCl 20 mg PO DAILY 07/21/16 Problem List - Problems (1) Sepsis Code(s): A41.9 - SEPSIS, UNSPECIFIED ORGANISM (2) Foreign body with infection Code(s): [id number] - This patient is new to me today: No Emergency Visit: Yes ED Registration Date: 07/21/16 Care time: The patient presented to the Emergency Department on the above date and was hospitalized for further evaluation of their emergent condition. Critical Care patient: No - Discharge Referral Referred to [facility] Med P.C.: No
--- NOTE | 2016-07-25 13:17 | HOSP ---
Subjective - Review of Symptoms Subjective: AXR reviewed and appears to have worsening ileus with possible interval development of SBO. stat CT ordered went to discuss results iwth patient and need for CT for better visualization Refusing testing. wants to go home as "You created these problems for me and making stuff up" Explained the severity of the situation and how if he does have obstruction that he can have bowel perforation and . Stated he wanted to leave AMA Informed him of his risk of perforation, sepsis leading to organ failure, CVA and Informed him that [facility] will not accept him back due to him not being medically cleared. antihypertensive medications offered signed out AMA Physical Examination Vital Signs: Vital Signs Temperature 98.3 F 07/25/16 05:30 Pulse Rate 86 07/25/16 05:30 Respiratory Rate 16 07/25/16 05:30 Blood Pressure 204/118 07/25/16 05:30 O2 Sat by Pulse Oximetry (%) 95 07/24/16 21:00 Labs: CBC, BMP 07/23/16 06:30 07/24/16 16:10
--- NOTE | 2016-07-25 16:19 | PN ---
Physical Exam: SUBJECTIVE: Patient seen and examined Patient resting in bed, uncomfortable. afebrile. HTN poorly controlled overnight 204/118, unresponsive to daily meds and labetalol. He feels nauseous, has rhinorrhea and body aches. frequently asking for more methadone and threatening to leave AMA if methadone not given. explained the foot x ray was inconclusive for foot infection and offered MRI. Patient refusing MRI. He is asking for juice and soup. Had large nonbloody nonmelenous BM this morning. Denies f/c, chest pain, sob, abd pain or dysuria. OBJECTIVE: Vital Signs Period Temp Pulse Resp BP Sys/Henry Pulse Ox Last 24 Hr 98.1 F-99.5 F 71-109 16-20 150-204/90-118 95-95 GENERAL: Awake, alert, and fully oriented, NAD HEAD: atraumatic EYES: Perrla, EIOMI, conjunctiva clear EARS, NOSE, THROAT: Moist mucous membranes. NECK: Supple. LUNGS: cta b/l HEART: Regular rate and rhythm, normal S1 and S2 ABDOMEN: mildly distended, obese, non tender, normoactive bowel sounds, no hepatomegaly or splenomegaly, full ascending colon. MUSCULOSKELETAL: No CVA tenderness. UPPER EXTREMITIES: 2+ pulses, warm, well-perfused. No peripheral edema. LLE: edematous, defomed, no lesions, 2+ DP RLE:2+ pulses, warm, well-perfused. No edema. NEUROLOGICAL: Cranial nerves II-XII intact. Normal speech. Gait not observed. PSYCHIATRIC: Cooperative. Good eye contact. Appropriate mood and affect. SKIN: Warm, dry Laboratory Results - last 24 hr 07/24/16 07/24/16 07/25/16 16:10 21:46 06:37 Sodium 138 Potassium 3.7 Chloride 99 Carbon Dioxide 25 Anion Gap 14 BUN 26 H Creatinine 2.0 H POC Glucometer 241 233 Random Glucose 181 H Calcium 8.4 L Lipase 60 L 07/25/16 12:04 Sodium Potassium Chloride Carbon Dioxide Anion Gap BUN Creatinine POC Glucometer 243 Random Glucose Calcium Lipase Active Medications Generic Name Dose Route Start Last Admin Trade Name Freq PRN Reason Stop Dose Admin Acetaminophen 650 mg 07/22/16 07:48 07/22/16 21:33 Tylenol - PO 650 mg Q4H PRN Administration FEVER OR PAIN Amlodipine Besylate 10 mg 07/25/16 05:44 07/25/16 11:12 Norvasc - PO 10 mg DAILY JAYLIN Administration Clonidine 0.1 mg 07/25/16 09:00 07/25/16 11:06 Catapres - PO 0.1 mg TID JAYLIN Administration Heparin Sodium (Porcine) 5,000 unit 07/21/16 22:00 07/25/16 12:15 Heparin - SQ Not Given BID JAYLIN Cefazolin Sodium/Dextrose 50 mls @ 200 mls/hr 07/24/16 18:00 07/25/16 10:07 Ancef 2 Gm Premixed Ivpb - IVPB 200 mls/hr Q8H-IV JAYLIN Administration Dextrose 1,000 mls @ 42 mls/hr 07/24/16 17:45 07/24/16 18:37 D5w - IV 42 mls/hr ASDIR JAYLIN Administration Insulin Aspart 1 vial 07/22/16 07:00 07/25/16 12:12 Novolog Vial Sliding Scale - SQ 4 unit ACHS JAYLIN Administration Protocol Lactulose 20 gm 07/24/16 22:00 07/25/16 06:51 Cephulac (Oral Use) PO Not Given TID JAYLIN Lisinopril 40 mg 07/22/16 10:00 07/25/16 11:11 Prinivil PO 40 mg DAILY JAYLIN Administration Methadone HCl 5 mg 07/26/16 10:00 Dolophine - PO 07/26/16 10:01 ONCE ONE Methylnaltrexone [place] 8 mg 07/24/16 10:00 07/25/16 12:15 Relistor - SQ Not Given DAILY JAYLIN Ondansetron HCl 4 mg 07/21/16 22:32 07/25/16 10:34 Zofran Injection IVPB 4 mg Q6H PRN Administration NAUSEA Polyethylene Glycol 17 gm 07/23/16 11:45 07/25/16 11:12 Miralax (For Daily Use) - PO 17 grams BID JAYLIN Administration Thiamine HCl 100 mg 07/22/16 10:00 07/25/16 12:12 Vitamin B1 - PO 100 mg DAILY JAYLIN Administration ASSESSMENT/PLAN: This is a 65 year old male with significant PMH of Heroin dependence detox, Hypertension, DM II, Cataract, Depression and CKD stage III, who presented to the ED with the chief complaint of cold, fever, cough x 1 day. Nonsmoker but inhales heroin Sepsis -CXR admission right lower lobe infiltrate -fever recurring on rocephin, was on zosyn yesterday, s/p one dose vanco today -leukocytosis 16 platoed, then refused labs -one/2 blood cultures growing mssa -Influenza negative -Sputum for culture normal lizbeth -s/p ID consult -likely source is L foot; unlikely pulmonary -mssa bacteremia -repeat blood cultures negative -TTE diastolic dysfunction -sed rate, crp very elevated -Duplex LLE negative -Xray L foot: charcot, soft tissue inflamation, possible osteomyelitis. -refuses foot MRI -refuses nafcillin 2g Q4h b/c it made him nauseous, started cefazolin -patient admits to prior history of bacteremia treated with abx -Contact orto surgeon tomorrow Constipation, nausea, vomiting -r/o SBO -large nonbloody nonmelenous BM this am -abd XR possible sbo -CT abd with contrast to follow -methylnaltrexone HTN urgency -Hypertensive overnight failing daily meds and labetalol 204/118 -clonidine 0.1 tid -Amlodipine 10mg and Lisinopril 40mg Heroin abuse -On detox for Heroin abuse at [facility]. -[facility] u tox: Positive for Opiates, heroine, Benzodiazepine -Methadone 15 mg x 2 days, 10 mg x 1 day and 5 mg x 1 day; confirmed. -patient drug seeking, states has severe withdrawal. -Detox specialist contacted, patient not to be given extra methadone -add clonidine MORGAN with CKD stage III -creat 1.8 trending down Hyponatremia -resolved DM2 -previously on metformin but d/cd due to ckd -HbA1c ordered -sliding scale -fingerstick achs Depression -denies being depressed at this time FEN no fluids lytes stable DVT GI PPX: hep, diet Diabetic diet Monitor in tele Problem List - Problems (1) Sepsis Code(s): A41.9 - SEPSIS, UNSPECIFIED ORGANISM (2) Foreign body with infection Code(s): [id number] - (3) Constipation Code(s): K59.00 - CONSTIPATION, UNSPECIFIED (4) Small bowel obstruction Code(s): K56.69 - OTHER INTESTINAL OBSTRUCTION Visit type - Emergency Visit Emergency Visit: Yes ED Registration Date: 07/21/16 Care time: The patient presented to the Emergency Department on the above date and was hospitalized for further evaluation of their emergent condition. - New Patient This patient is new to me today: No - Critical Care Critical Care patient: No - Discharge Referral Referred to [facility] No
[2016-07-25] MEDS: DEXTROSE 5%-WATER - 1,000 ML IV SCH (18:52)
[2016-07-26] MEDS: CEFAZOLIN 2 GM/D5W 50 ML IVPB SCH ×4 (02:05→17:06)
[2016-07-26] MEDS: ACETAMINOPHEN 325 MG TABLET (FP) PO PRN ×2 (04:07→17:07)
[2016-07-26] MEDS: LACTULOSE 20 GM/30 ML UDC (FOR ORAL USE ONLY) PO SCH ×3 (05:19→22:17)
[2016-07-26] MEDS: cloNIDine HCL 0.1 MG TABLET PO SCH ×3 (06:36→22:17)
[2016-07-26] MEDS: INSULIN SLIDING SCALE (NOVOLOG) 1 VIAL SQ SCH ×4 (06:39→22:00)
[2016-07-26 07:28] LABS: MCH 28.5 pg (25.7-33.7); MCHC 33.8 g/dl (32.0-35.9); MEAN CELL VOLUME 84.4 fl (80-96); MEAN PLT VOLUME 7.3 fl (7.5-11.1); PLATELET COUNT 497 K/MM3 (134-434); RDW 14.3 % (11.9-15.9); WHITE BLOOD COUNT 16.4 K/mm3 (4.0-10.0)
[2016-07-26 08:08] LABS: CALCIUM 8.9 mg/dL (8.5-10.1); CREATININE 1.9 mg/dL (0.7-1.3)
[2016-07-26] MEDS: THIAMINE HCL 100 MG TABLET (FP) PO SCH (09:32)
[2016-07-26] MEDS: LISINOPRIL 20 MG TABLET (FP) PO SCH (09:32)
[2016-07-26] MEDS: amLODIPine BESYLATE 10 MG TABLET (FP) PO SCH (09:33)
[2016-07-26] MEDS: POLYETHYLENE GLYCOL 3350 119 GM BTL PO SCH (09:33)
[2016-07-26] MEDS: Methylnaltrexone Bromide 12 MG/0.6 ML KIT SQ SCH (09:33)
[2016-07-26] MEDS: HEPARIN NA (PORCINE) 5,000 UNITS/ML 1ML VIAL SQ SCH ×2 (09:33→22:18)
[2016-07-26] MEDS ORDERED: METHADONE HCL 10 MG TABLET PO ONE (10:00)
--- NOTE | 2016-07-26 12:53 | PN ---
Teaching Attending Note Name of Resident: Maribell Gaitan ATTENDING PHYSICIAN STATEMENT I saw and evaluated the patient. I reviewed the resident's note and discussed the case with the resident. I agree with the resident's findings and plan as documented. SUBJECTIVE:states he does not feel well but will not specify how he is feeling. requesting food because "you can not let a man starve", states he had a lot of BM's since yesterday note a lot of belching during exam refuses to answer all questions to ascertain what his specific symptoms are. OBJECTIVE: Last Vital Signs Temp Pulse Resp BP Pulse Ox 97.9 F 82 20 188/112 96 07/26/16 08:50 07/26/16 08:50 07/26/16 06:00 07/26/16 08:50 07/25/16 21:00 Abdomen soft, distended nontender tympanic throughout normoactive BS ASSESSMENT AND PLAN: 65yo M with PMH continuous heroin dependence, HTN, DM, CKD stage III, presented to the ER and was admitted for further evaluation of their emergent condition 1. Ileus- possible opiate induced. agreed to NGT in the evening but then pulled it out as soon as it was placed. was able to tolerate contrast. CT images reviewed by me and pt has significant ileus with fecal retention, enlarged bladder. pt states he's peeing enough and refusing olivera placement. cont IVF for no, stool softeners. 2. MSSA bacteremia -afebrile. received abx yesterday but refusing this morning. explained to him the importance of being compliant with antibiotic therapy. will place call out to orthopedist who performed foot surgery today. refusing MRI to r/o OM.on cefazolin 4. Acute microcytic anemia- likely dilutional. no signs of active bleeding. will trend for now. no indication for txn 5. Acute on CKD stage III- due to sepsis. baseline Cr 1.8. now at baseline. avoid nephrotoxic agents. good UOP 6. Continuous heroin withdrawal-completed methadone taper today, last dose. interested in methadone treatment program and states he is going tomorrow. informed him that if he signs out AMA tomorrow that they will refuse to treat him at program as he is not medically cleared. will call Dr Puneet osborn to comment. 7. HTN-improved. when he is agreeable to take medications so has several missed doses. cont to encourage compliance. informed he is at risk for CVA with his BP being uncontrolled. 8. DM- refusing to go home on insulin at this time. will cover with long acting insulin. cont iss, BGM 9. DVT ppx- hep sq
--- NOTE | 2016-07-26 14:35 | PN ---
Physical Exam: SUBJECTIVE: Patient seen and examined Patient resting in bed, uncomfortable. afebrile. HTN better control 160/96, taking clonidine this am but refusing other meds, includint the abx. He feels nauseous, has nbnb vomiting, has rhinorrhea and body aches. Asking for more methadone and threatening to leave AMA. explained the foot x ray was inconclusive for foot infection and offered MRI. Patient refusing MRI. He is asking for juice and soup. Several normal BM yesterday and one today. Expressed wishes to join methadone program. Denies f/c, chest pain, sob, abd pain or dysuria. OBJECTIVE: Vital Signs Period Temp Pulse Resp BP Sys/Henry Pulse Ox Last 24 Hr 97.9 F-99.7 F 67-82 18-20 147-188/96-112 96 GENERAL: Awake, alert, and fully oriented HEAD: atraumatic EYES: Perrla, EIOMI, conjunctiva clear EARS, NOSE, THROAT: Moist mucous membranes. NECK: Supple. LUNGS: cta b/l HEART: Regular rate and rhythm, normal S1 and S2 ABDOMEN: mildly distended, obese, non tender, normoactive bowel sounds, no hepatomegaly or splenomegaly, no massess. MUSCULOSKELETAL: No CVA tenderness. UPPER EXTREMITIES: 2+ pulses, warm, well-perfused. No peripheral edema. LLE: edematous, defomed, no lesions, 2+ DP RLE:2+ pulses, warm, well-perfused. No edema. NEUROLOGICAL: Cranial nerves II-XII grossly intact. Normal speech. Gait not observed. PSYCHIATRIC: irritable. SKIN: Warm, dry Laboratory Results - last 24 hr 07/25/16 07/25/16 07/26/16 16:32 21:33 05:35 WBC 16.4 H RBC 4.28 Hgb 12.2 D Hct 36.1 D MCV 84.4 MCHC 33.8 RDW 14.3 Plt Count 497 H D MPV 7.3 L Sodium Potassium Chloride Carbon Dioxide Anion Gap BUN Creatinine POC Glucometer 193 214 Random Glucose Calcium 07/26/16 07/26/16 07/26/16 05:35 06:37 11:55 WBC RBC Hgb Hct MCV MCHC RDW Plt Count MPV Sodium 135 L Potassium 3.7 Chloride 95 L Carbon Dioxide 25 Anion Gap 15 BUN 36 H D Creatinine 1.9 H POC Glucometer 187 194 Random Glucose 198 H Calcium 8.9 Active Medications Generic Name Dose Route Start Last Admin Trade Name Freq PRN Reason Stop Dose Admin Acetaminophen 650 mg 07/22/16 07:48 07/26/16 04:07 Tylenol - PO 650 mg Q4H PRN Administration FEVER OR PAIN Amlodipine Besylate 10 mg 07/25/16 05:44 07/26/16 09:33 Norvasc - PO 10 mg DAILY [facility] Administration Clonidine 0.1 mg 07/25/16 09:00 07/26/16 06:36 Catapres - PO 0.1 mg TID JAYLIN Administration Docusate Sodium 100 mg 07/26/16 14:00 Colace - PO TID [facility] Heparin Sodium (Porcine) 5,000 unit 07/21/16 22:00 07/26/16 09:33 Heparin - SQ Not Given BID [facility] Cefazolin Sodium/Dextrose 50 mls @ 200 mls/hr 07/24/16 18:00 07/26/16 09:32 Ancef 2 Gm Premixed Ivpb - IVPB Not Given Q8H-IV [facility] Dextrose 1,000 mls @ 42 mls/hr 07/24/16 17:45 07/25/16 18:52 D5w - IV Not Given ASDIR [facility] Insulin Aspart 1 vial 07/22/16 07:00 07/26/16 06:39 Novolog Vial Sliding Scale - SQ 2 unit ACHS [facility] Administration Protocol Lactulose 20 gm 07/24/16 22:00 07/26/16 05:19 Cephulac (Oral Use) PO Not Given TID [facility] Lisinopril 40 mg 07/22/16 10:00 07/26/16 09:32 Prinivil PO 40 mg DAILY [facility] Administration Methylnaltrexone [place] 8 mg 07/24/16 10:00 07/26/16 09:33 Relistor - SQ Not Given DAILY [facility] Ondansetron HCl 4 mg 07/21/16 22:32 07/25/16 10:34 Zofran Injection IVPB 4 mg Q6H PRN Administration NAUSEA Polyethylene Glycol 17 gm 07/23/16 11:45 07/26/16 09:33 Miralax (For Daily Use) - PO Not Given BID [facility] Thiamine HCl 100 mg 07/22/16 10:00 07/26/16 09:32 Vitamin B1 - PO 100 mg DAILY JAYLIN Administration ASSESSMENT/PLAN: This is a 65 year old male with significant PMH of Heroin dependence detox, Hypertension, DM II, Cataract, Depression and CKD stage III, who presented to the ED with the chief complaint of cold, fever, cough x 1 day. Nonsmoker but inhales heroin Sepsis -s/p ID consult -likely source is L foot; unlikely pulmonary -mssa bacteremia -leukocytosis 16.4 -one/2 blood cultures growing mssa; repeat blood cultures negative -sed rate, crp very elevated -TTE diastolic dysfunction -Duplex LLE negative -Xray L foot: charcot, soft tissue inflamation, possible osteomyelitis. -refuses foot MRI -refuses cefazolin today (day 3) -patient admits to prior history of bacteremia treated with abx -left message for his orthopedic surgeon Constipation, nausea, vomiting -withdrawal vs ileus due to opiate; r/o SBO -several nonbloody nonmelenous BM yesterday and today -abd XR possible sbo -CT abd no sbo seen -methylnaltrexone -failed trail of full liquid diet today -npo -refusing NGT -D5W@75 -ppi iv HTN urgency -better controlled -clonidine 0.1 tid -Amlodipine 10mg and Lisinopril 40mg Heroin abuse -On detox for Heroin abuse at [facility]. -[facility] u tox: Positive for Opiates, heroine, Benzodiazepine -methadone 5 mg last dose today -patient drug seeking, states has severe withdrawal. -Detox specialist contacted, patient not to be given extra methadone -add clonidine -patient wishes to join a methadone program. MORGAN with CKD stage III -creat 1.9 platoed Hyponatremia -resolved DM2 -previously on metformin but d/cd due to ckd -HbA1c ordered -sliding scale-refusing today -fingerstick achs Depression -denies being depressed at this time FEN no fluids lytes stable DVT GI PPX: hep-refusing today npo Monitor in tele Problem List - Problems (1) Sepsis Code(s): A41.9 - SEPSIS, UNSPECIFIED ORGANISM (2) Foreign body with infection Code(s): [id number] - (3) Constipation Code(s): K59.00 - CONSTIPATION, UNSPECIFIED (4) Small bowel obstruction Code(s): K56.69 - OTHER INTESTINAL OBSTRUCTION Visit type - Emergency Visit Emergency Visit: Yes ED Registration Date: 07/21/16 Care time: The patient presented to the Emergency Department on the above date and was hospitalized for further evaluation of their emergent condition. - New Patient This patient is new to me today: No - Critical Care Critical Care patient: No - Discharge Referral Referred to [facility] No
[2016-07-26] MEDS ORDERED: DEXTROSE 5%-WATER - 1,000 ML IV SCH (14:49)
--- NOTE | 2016-07-26 14:54 | PN ---
Progress Note, Physician History of Present Illness: Non- compliant Threatening to leave AMA Per nurse refused antibiotic this, refuses to remain NPO Afebrile - Current Medication List Current Medications: Active Medications Acetaminophen (Tylenol -) 650 mg PO Q4H PRN PRN Reason: FEVER OR PAIN Last Admin: 07/26/16 04:07 Dose: 650 mg Amlodipine Besylate (Norvasc -) 10 mg PO DAILY [facility] Last Admin: 07/26/16 09:33 Dose: 10 mg Clonidine (Catapres -) 0.1 mg PO TID [facility] Last Admin: 07/26/16 06:36 Dose: 0.1 mg Docusate Sodium (Colace -) 100 mg PO TID [facility] Heparin Sodium (Porcine) (Heparin -) 5,000 unit SQ BID [facility] Last Admin: 07/26/16 09:33 Dose: Not Given Cefazolin Sodium/Dextrose (Ancef 2 Gm Premixed Ivpb -) 50 mls @ 200 mls/hr IVPB Q8H-IV [facility] Last Admin: 07/26/16 09:32 Dose: Not Given Dextrose (D5w -) 1,000 mls @ 42 mls/hr IV ASDIR [facility] Last Admin: 07/25/16 18:52 Dose: Not Given Pantoprazole Sodium 40 mg/ (Sodium Chloride) 100 mls @ 200 mls/hr IVPB DAILY [facility] Insulin Aspart (Novolog Vial Sliding Scale -) 1 vial SQ ACHS [facility] PRN Reason: Protocol Last Admin: 07/26/16 06:39 Dose: 2 unit Lactulose (Cephulac (Oral Use)) 20 gm PO TID [facility] Last Admin: 07/26/16 05:19 Dose: Not Given Lisinopril (Prinivil) 40 mg PO DAILY [facility] Last Admin: 07/26/16 09:32 Dose: 40 mg Methylnaltrexone [place] (Relistor -) 8 mg SQ DAILY [facility] Last Admin: 07/26/16 09:33 Dose: Not Given Ondansetron HCl (Zofran Injection) 4 mg IVPB Q6H PRN PRN Reason: NAUSEA Last Admin: 07/25/16 10:34 Dose: 4 mg Polyethylene Glycol (Miralax (For Daily Use) -) 17 gm PO BID [facility] Last Admin: 07/26/16 09:33 Dose: Not Given Thiamine HCl (Vitamin B1 -) 100 mg PO DAILY [facility] Last Admin: 07/26/16 09:32 Dose: 100 mg - Objective Vital Signs: Vital Signs Temperature 97.9 F 07/26/16 08:50 Pulse Rate 82 07/26/16 08:50 Respiratory Rate 20 07/26/16 06:00 Blood Pressure 188/112 07/26/16 08:50 O2 Sat by Pulse Oximetry (%) 96 07/25/16 21:00 Constitutional: Yes: No Distress, Obese Eyes: Yes: Conjunctiva Clear Cardiovascular: Yes: Regular Rate and Rhythm, S1, S2 Respiratory: Yes: CTA Bilaterally Gastrointestinal: Yes: Normal Bowel Sounds, Soft. No: Tenderness Edema: Yes Labs: CBC, BMP 07/26/16 05:35 07/26/16 05:35 INR, PTT INR 1.26 (0.82-1.09) H 07/21/16 16:26 Assessment/Plan MSSA bacteremia/ possible endocarditis Possible Infected ortho hardware Opiate use Non- compliance Encouraged completion of antibiotic course
[2016-07-26] MEDS: PANTOPRAZOLE SODIUM 40MG/100 ML IVPB SCH (15:27)
[2016-07-26] MEDS: DOCUSATE SODIUM 100 MG CAPSULE (FP) PO SCH ×2 (15:27→22:17)
[2016-07-26] MEDS ORDERED: DEXTROSE 5%-0.45% SALINE 1,000 ML IV SCH (15:30)
[2016-07-26] MEDS ORDERED: ACETAMINOPHEN 325 MG TABLET (FP) PO PRN (19:59)
[2016-07-26] MEDS ORDERED: ONDANSETRON 4 MG/2 ML VIAL IVPB PRN (19:59)
[2016-07-27] MEDS: CEFAZOLIN 2 GM/D5W 50 ML IVPB SCH ×4 (02:13→19:22)
[2016-07-27] MEDS: POLYETHYLENE GLYCOL 3350 119 GM BTL PO SCH ×3 (02:14→21:44)
[2016-07-27] MEDS: INSULIN SLIDING SCALE (NOVOLOG) 1 VIAL SQ SCH ×4 (06:30→22:00)
[2016-07-27] MEDS: cloNIDine HCL 0.1 MG TABLET PO SCH ×3 (06:30→21:43)
[2016-07-27] MEDS: DOCUSATE SODIUM 100 MG CAPSULE (FP) PO SCH ×3 (06:30→22:00)
[2016-07-27] MEDS: LACTULOSE 20 GM/30 ML UDC (FOR ORAL USE ONLY) PO SCH ×3 (06:31→21:45)
[2016-07-27 07:54] LABS: MCHC 33.5 g/dl (32.0-35.9); MEAN CELL VOLUME 83.5 fl (80-96); MEAN PLT VOLUME 7.2 fl (7.5-11.1); PLATELET COUNT 556 K/MM3 (134-434); RDW 14.3 % (11.9-15.9)
[2016-07-27 08:30] LABS: CALCIUM 8.5 mg/dL (8.5-10.1); CREATININE 1.7 mg/dL (0.7-1.3); MAGNESIUM 1.9 mg/dL (1.8-2.4); PHOSPHOROUS 2.5 mg/dL (2.5-4.9)
[2016-07-27] MEDS: LISINOPRIL 20 MG TABLET (FP) PO SCH (09:19)
[2016-07-27] MEDS: HEPARIN NA (PORCINE) 5,000 UNITS/ML 1ML VIAL SQ SCH ×2 (09:20→21:44)
[2016-07-27] MEDS: THIAMINE HCL 100 MG TABLET (FP) PO SCH (09:20)
[2016-07-27] MEDS: amLODIPine BESYLATE 10 MG TABLET (FP) PO SCH (09:20)
[2016-07-27] MEDS: PANTOPRAZOLE SODIUM 40MG/100 ML IVPB SCH (09:21)
[2016-07-27] MEDS: Methylnaltrexone Bromide 12 MG/0.6 ML KIT SQ SCH (09:21)
--- NOTE | 2016-07-27 11:40 | PN ---
Addendum entered and electronically signed by Maribell Gaitan, RES 07/27/16 14: 27: spoke with Dr Rojas's fellow. Patient likely needs BKA. Should be managed here with vascular surgery. Original Note: <Maribell Gaitan - Last Filed: 07/27/16 12:17> Physical Exam: SUBJECTIVE: Patient seen and examined Patient resting in bed, NAD. afebrile. BP high this morning before meds 180/98, better controlled yesterday afternoon after BP meds (145 systolic) . Feels much better today, no n/v, no achs, no rhinorrhea. normal BM. tolerates tea, asks for more food. Expressed wishes to join methadone program. agrees for transfer to hospital for special surgery. Denies f/c, chest pain, sob, abd pain or dysuria. OBJECTIVE: Vital Signs Period Temp Pulse Resp BP Sys/Henry Pulse Ox Last 24 Hr 97.5 F-100.0 F 67-89 16-20 122-190/74-118 98 GENERAL: Awake, alert, and fully oriented HEAD: atraumatic EYES: Perrla, EIOMI, conjunctiva clear EARS, NOSE, THROAT: Moist mucous membranes. NECK: Supple. LUNGS: cta b/l HEART: Regular rate and rhythm, normal S1 and S2 ABDOMEN: nondistended, obese, non tender, normoactive bowel sounds, no hepatomegaly or splenomegaly, no massess. MUSCULOSKELETAL: No CVA tenderness. UPPER EXTREMITIES: 2+ pulses, warm, well-perfused. No peripheral edema. LLE: edematous, defomed, oozing serosanguineous fluid from medial aspect of calcaneus., 2+ DP. stasis dermatitis RLE:2+ pulses, warm, well-perfused. No edema. stasis dermatitis NEUROLOGICAL: Cranial nerves II-XII grossly intact. Normal speech. Gait not observed. PSYCHIATRIC: irritable. SKIN: Warm, dry Laboratory Results - last 24 hr 07/26/16 07/26/16 07/26/16 11:55 15:38 22:06 WBC RBC Hgb Hct MCV MCHC RDW Plt Count MPV Sodium Potassium Chloride Carbon Dioxide Anion Gap BUN Creatinine POC Glucometer 194 230 213 Random Glucose Calcium Phosphorus Magnesium 07/27/16 07/27/16 07/27/16 06:04 06:06 06:06 WBC 15.0 H RBC 4.55 Hgb 12.7 Hct 38.0 MCV 83.5 MCHC 33.5 RDW 14.3 Plt Count 556 H MPV 7.2 L Sodium 131 L Potassium 3.9 Chloride 90 L Carbon Dioxide 28 Anion Gap 13 BUN 32 H Creatinine 1.7 H POC Glucometer 274 Random Glucose 287 H D Calcium 8.5 Phosphorus 2.5 Magnesium 1.9 Active Medications Generic Name Dose Route Start Last Admin Trade Name Frebraulio PRN Reason Stop Dose Admin Acetaminophen 650 mg 07/26/16 19:59 Tylenol - PO Q4H PRN FEVER OR PAIN Amlodipine Besylate 10 mg 07/27/16 10:00 07/27/16 09:20 Norvasc - PO 10 mg DAILY [facility] Administration Clonidine 0.1 mg 07/25/16 09:00 07/27/16 06:30 Catapres - PO 0.1 mg TID [facility] Administration Docusate Sodium 100 mg 07/26/16 14:00 07/27/16 06:30 Colace - PO 100 mg TID [facility] Administration Heparin Sodium (Porcine) 5,000 unit 07/26/16 22:00 07/27/16 09:20 Heparin - SQ Not Given BID [facility] Pantoprazole Sodium 100 mls @ 200 mls/hr 07/26/16 15:00 07/27/16 09:21 Protonix 40mg Ivpb (Pre-Docked) IVPB Not Given DAILY [facility] Cefazolin Sodium/Dextrose 50 mls @ 200 mls/hr 07/27/16 02:00 07/27/16 09:20 Ancef 2 Gm Premixed Ivpb - IVPB Not Given Q8H-IV [facility] Insulin Aspart 1 vial 07/26/16 22:00 07/27/16 06:30 Novolog Vial Sliding Scale - SQ 4 units ACHS [facility] Administration Protocol Lactulose 20 gm 07/26/16 22:00 07/27/16 06:31 Cephulac (Oral Use) PO Not Given TID [facility] Lisinopril 40 mg 07/27/16 10:00 07/27/16 09:19 Prinivil PO 40 mg DAILY [facility] Administration Methylnaltrexone [place] 8 mg 07/27/16 10:00 07/27/16 09:21 Relistor - SQ Not Given DAILY [facility] Ondansetron HCl 4 mg 07/26/16 19:59 Zofran Injection IVPB Q6H PRN NAUSEA Polyethylene Glycol 17 gm 07/26/16 22:00 07/27/16 09:21 Miralax (For Daily Use) - PO Not Given BID [facility] Thiamine HCl 100 mg 07/27/16 10:00 07/27/16 09:20 Vitamin B1 - PO 100 mg DAILY [facility] Administration ASSESSMENT/PLAN: This is a 65 year old male with significant PMH of Heroin dependence detox, Hypertension, DM II, Cataract, Depression and CKD stage III, who presented to the ED with the chief complaint of cold, fever, cough x 1 day. Nonsmoker but inhales heroin Sepsis -s/p ID consult -likely source is L foot; unlikely pulmonary -mssa bacteremia -leukocytosis 15 -one/2 blood cultures growing mssa; repeat blood cultures negative -sed rate, crp very elevated -TTE diastolic dysfunction -Duplex LLE negative -Xray L foot: charcot, soft tissue inflamation, possible osteomyelitis. -IV cefazolin day 4 -patient admits to prior history of bacteremia treated with abx -he requires infection source control and should be managed by his orthopedic surgeon, he also refuses foot MRI while here -spoke with orthopedic surgeon fellow, shelbi xfer to [facility] for special surgery , to surgeon who perated on food previously for further management of foot infection Constipation, nausea, vomiting -due to withdrawal and ileus -resolved -full liquids HTN urgency -better controlled -clonidine 0.1 tid -Amlodipine 10mg and Lisinopril 40mg Heroin abuse -On detox for Heroin abuse at [facility]. -[facility] u tox: Positive for Opiates, heroine, Benzodiazepine -completed detox -Detox specialist contacted, patient not to be given extra methadone -on clonidine -patient wishes to join a methadone program. MORGAN with CKD stage III -creat 1.7 baseline Hyponatremia -resolved DM2 -previously on metformin but d/cd due to ckd -HbA1c -sliding scale -fingerstick achs Depression -denies being depressed at this time FEN no fluids lytes stable DVT GI PPX: hep, diet full liquids Dispo: transfer to [facility] for special surgery Problem List - Problems (1) Sepsis Code(s): A41.9 - SEPSIS, UNSPECIFIED ORGANISM (2) Foreign body with infection Code(s): [id number] - (3) Constipation Code(s): K59.00 - CONSTIPATION, UNSPECIFIED (4) Small bowel obstruction Code(s): K56.69 - OTHER INTESTINAL OBSTRUCTION Visit type - Emergency Visit Emergency Visit: Yes ED Registration Date: 07/21/16 Care time: The patient presented to the Emergency Department on the above date and was hospitalized for further evaluation of their emergent condition. - New Patient This patient is new to me today: No - Critical Care Critical Care patient: No - Discharge Referral Referred to [facility] No <Vinh Cavazos - Last Filed: 07/27/16 16:05> Physical Exam: ATTENDING PHYSICIAN STATEMENT I saw and evaluated the patient. I reviewed the resident's note and discussed the case with the resident. I agree with the resident's findings and plan as documented. SUBJECTIVE: seen and evaluated at the bedside OBJECTIVE: left foot swollen with crepitis and draining serosanguinous fluid ASSESSMENT AND PLAN: 65 year old man with Heroin dependence, Hypertension, DM II, Depression, CKD admitted for sepsis due to possible osteomyelitis Osteo -pt has history of infected hardware and intermittent infections in left foot -was offered amputation by ortho at [facility] in the past but at that time refused -grew MSSA in blood culture; echo shows no vegetations -cont cefazolin as per ID attending recs -follow up podiatry consult -no MRI as pt has CKD and is at risk for nephrogenic interstitial fibrosis
--- NOTE | 2016-07-27 14:07 | PN ---
Progress Note, Physician History of Present Illness: Requesting pain meds Intermittantly refusing meds Low grade temp noted - Current Medication List Current Medications: Active Medications Acetaminophen (Tylenol -) 650 mg PO Q4H PRN PRN Reason: FEVER OR PAIN Amlodipine Besylate (Norvasc -) 10 mg PO DAILY [facility] Last Admin: 07/27/16 09:20 Dose: 10 mg Clonidine (Catapres -) 0.1 mg PO TID [facility] Last Admin: 07/27/16 06:30 Dose: 0.1 mg Docusate Sodium (Colace -) 100 mg PO TID [facility] Last Admin: 07/27/16 06:30 Dose: 100 mg Heparin Sodium (Porcine) (Heparin -) 5,000 unit SQ BID [facility] Last Admin: 07/27/16 09:20 Dose: Not Given Cefazolin Sodium/Dextrose (Ancef 2 Gm Premixed Ivpb -) 50 mls @ 200 mls/hr IVPB Q8H-IV [facility] Last Admin: 07/27/16 09:20 Dose: Not Given Insulin Aspart (Novolog Vial Sliding Scale -) 1 vial SQ ACHS [facility] PRN Reason: Protocol Last Admin: 07/27/16 12:11 Dose: 8 units Lactulose (Cephulac (Oral Use)) 20 gm PO TID [facility] Last Admin: 07/27/16 06:31 Dose: Not Given Lisinopril (Prinivil) 40 mg PO DAILY [facility] Last Admin: 07/27/16 09:19 Dose: 40 mg Methylnaltrexone [place] (Relistor -) 8 mg SQ DAILY [facility] Last Admin: 07/27/16 09:21 Dose: Not Given Ondansetron HCl (Zofran Injection) 4 mg IVPB Q6H PRN PRN Reason: NAUSEA Polyethylene Glycol (Miralax (For Daily Use) -) 17 gm PO BID [facility] Last Admin: 07/27/16 09:21 Dose: Not Given Thiamine HCl (Vitamin B1 -) 100 mg PO DAILY [facility] Last Admin: 07/27/16 09:20 Dose: 100 mg - Objective Vital Signs: Vital Signs Temperature 97.5 F L 07/27/16 08:32 Pulse Rate 67 07/27/16 08:32 Respiratory Rate 16 07/27/16 09:00 Blood Pressure 122/74 07/27/16 08:32 O2 Sat by Pulse Oximetry (%) 98 07/27/16 09:00 Constitutional: Yes: No Distress, Obese Eyes: Yes: Conjunctiva Clear Cardiovascular: Yes: Regular Rate and Rhythm, S1, S2 Respiratory: Yes: CTA Bilaterally Gastrointestinal: Yes: Normal Bowel Sounds, Soft. No: Tenderness Labs: CBC, BMP 07/27/16 06:06 07/27/16 06:06 INR, PTT INR 1.26 (0.82-1.09) H 07/21/16 16:26 Assessment/Plan MSSA bacteremia/ possible endocarditis Possible osteomyelitis Opiate use Non- compliance Encouraged completion of antibiotic course Needs fpc antibiotic therapy
[2016-07-27] MEDS ORDERED: OXYCODONE/APAP 5/325MG COMBO TABLET PO PRN (16:03)
[2016-07-27] MEDS ORDERED: ACETAMINOPHEN 325 MG TABLET (FP) PO PRN (16:05)
[2016-07-27] MEDS: oxyCODONE HCL 5 MG TABLET PO PRN ×2 (16:31→21:42)
[2016-07-28] MEDS: CEFAZOLIN 2 GM/D5W 50 ML IVPB SCH ×2 (02:17→09:11)
[2016-07-28] MEDS: DOCUSATE SODIUM 100 MG CAPSULE (FP) PO SCH (06:11)
[2016-07-28] MEDS: INSULIN SLIDING SCALE (NOVOLOG) 1 VIAL SQ SCH (06:12)
[2016-07-28] MEDS: LACTULOSE 20 GM/30 ML UDC (FOR ORAL USE ONLY) PO SCH (06:13)
[2016-07-28] MEDS: cloNIDine HCL 0.1 MG TABLET PO SCH (06:13)
[2016-07-28 07:24] LABS: MCH 28.2 pg (25.7-33.7); MCHC 33.9 g/dl (32.0-35.9); MEAN CELL VOLUME 83.3 fl (80-96); MEAN PLT VOLUME 6.9 fl (7.5-11.1); PLATELET COUNT 525 K/MM3 (134-434); RDW 14.2 % (11.9-15.9); WHITE BLOOD COUNT 15.7 K/mm3 (4.0-10.0)
[2016-07-28 07:54] LABS: CALCIUM 8.4 mg/dL (8.5-10.1); CREATININE 1.6 mg/dL (0.7-1.3)
[2016-07-28] MEDS ORDERED: PT OWN MED DRAWER 7, Y5N ONE (09:00)
[2016-07-28] MEDS: THIAMINE HCL 100 MG TABLET (FP) PO SCH (09:11)
[2016-07-28] MEDS: LISINOPRIL 20 MG TABLET (FP) PO SCH (09:12)
[2016-07-28] MEDS: HEPARIN NA (PORCINE) 5,000 UNITS/ML 1ML VIAL SQ SCH (09:12)
[2016-07-28] MEDS: amLODIPine BESYLATE 10 MG TABLET (FP) PO SCH (09:12)
[2016-07-28] MEDS: POLYETHYLENE GLYCOL 3350 119 GM BTL PO SCH (09:18)
[2016-07-28] MEDS: Methylnaltrexone Bromide 12 MG/0.6 ML KIT SQ SCH (09:18)
[2016-07-28] MEDS: oxyCODONE HCL 5 MG TABLET PO PRN (09:20)
[2016-07-28 09:57] VITALS: BP 186/132; PULSE 84; TEMP 98.2
--- NOTE | 2016-07-28 13:22 | PN ---
Physical Exam: SUBJECTIVE: Patient seen and examined Patient resting in bed, NAD. afebrile. BP high this morning 186/104, Complains of wanting to leave and join methadone program. Refuses podiatry of vascular surgery consult. refuses any intervention for L foot despite being explained the danger of leaving infection unattended. Denies f/c, chest pain, sob, abd pain or dysuria. Asks for AMA signout forms OBJECTIVE: Vital Signs Period Temp Pulse Resp BP Sys/Henry Pulse Ox Last 24 Hr 98.2 F-100.8 F 80-84 16-20 180-186/97-132 96 GENERAL: Awake, alert, and fully oriented HEAD: atraumatic EYES: Perrla, EIOMI, conjunctiva clear EARS, NOSE, THROAT: Moist mucous membranes. NECK: Supple. LUNGS: cta b/l HEART: Regular rate and rhythm, normal S1 and S2 ABDOMEN: nondistended, obese, non tender, normoactive bowel sounds, no hepatomegaly or splenomegaly, no massess. MUSCULOSKELETAL: No CVA tenderness. UPPER EXTREMITIES: 2+ pulses, warm, well-perfused. No peripheral edema. LLE: edematous, defomed, oozing serosanguineous fluid from medial aspect of calcaneus., 2+ DP. stasis dermatitis RLE:2+ pulses, warm, well-perfused. No edema. stasis dermatitis NEUROLOGICAL: Cranial nerves II-XII grossly intact. Normal speech. Gait not observed. PSYCHIATRIC: irritable. SKIN: Warm, dry Laboratory Results - last 24 hr 07/27/16 07/27/16 07/28/16 16:38 21:55 05:35 WBC 15.7 H RBC 4.24 Hgb 12.0 Hct 35.3 L MCV 83.3 MCHC 33.9 RDW 14.2 Plt Count 525 H MPV 6.9 L Sodium Potassium Chloride Carbon Dioxide Anion Gap BUN Creatinine POC Glucometer 292 205 Random Glucose Calcium 07/28/16 07/28/16 05:35 05:47 WBC RBC Hgb Hct MCV MCHC RDW Plt Count MPV Sodium 130 L Potassium 3.6 Chloride 89 L Carbon Dioxide 29 Anion Gap 12 BUN 27 H Creatinine 1.6 H POC Glucometer 221 Random Glucose 252 H Calcium 8.4 L ASSESSMENT/PLAN: This is a 65 year old male with significant PMH of Heroin dependence detox, Hypertension, DM II, Cataract, Depression and CKD stage III, who presented to the ED with the chief complaint of cold, fever, cough x 1 day. Nonsmoker but inhales heroin Sepsis -s/p ID consult -likely source is L foot; unlikely pulmonary -mssa bacteremia -leukocytosis 15.7 -one/2 blood cultures growing mssa; repeat blood cultures negative -sed rate, crp very elevated -TTE diastolic dysfunction -Duplex LLE negative -Xray L foot: charcot, soft tissue inflamation, possible osteomyelitis. -IV cefazolin day 5 -patient admits to prior history of bacteremia treated with abx -he requires infection source control and should be managed, he also refuses foot MRI while here -spoke with his orthopedic surgeon fellow, elaine barrios, states patient needs BKA which can be done here -podiatry and vascular consult ordered. Patient refuses consults and threatens to leave Constipation, nausea, vomiting -due to withdrawal and ileus -resolved -full liquids HTN -poorly controlled -frequently refusing meds -clonidine 0.1 tid -Amlodipine 10mg and Lisinopril 40mg Heroin abuse -On detox for Heroin abuse at [facility]. -[facility] u tox: Positive for Opiates, heroine, Benzodiazepine -completed detox -Detox specialist contacted, patient not to be given extra methadone -on clonidine -patient wishes to join a methadone program. MORGAN with CKD stage III -creat 1.7 baseline Hyponatremia -resolved DM2 -previously on metformin but d/cd due to ckd -HbA1c -sliding scale -fingerstick achs Depression -denies being depressed at this time FEN no fluids lytes stable DVT GI PPX: hep, diet full liquids Dispo: signed out ama Problem List - Problems (1) Sepsis Code(s): A41.9 - SEPSIS, UNSPECIFIED ORGANISM Qualifiers: Sepsis type: sepsis due to unspecified organism Qualified Code(s): A41.9 - Sepsis, unspecified organism (2) Foreign body with infection Code(s): [id number] - (3) Constipation Code(s): K59.00 - CONSTIPATION, UNSPECIFIED (4) Small bowel obstruction Code(s): K56.69 - OTHER INTESTINAL OBSTRUCTION Visit type - Emergency Visit Emergency Visit: Yes ED Registration Date: 07/21/16 Care time: The patient presented to the Emergency Department on the above date and was hospitalized for further evaluation of their emergent condition. - New Patient This patient is new to me today: No - Critical Care Critical Care patient: No - Discharge Referral Referred to [facility] No
--- NOTE | 2016-07-28 15:40 | DS ---
Physical Examination Vital Signs: Vital Signs Temperature 98.2 F 07/28/16 09:20 Pulse Rate 84 07/28/16 09:20 Respiratory Rate 16 07/28/16 09:20 Blood Pressure 186/132 07/28/16 09:20 O2 Sat by Pulse Oximetry (%) 96 07/28/16 09:00 Labs: CBC, BMP 07/28/16 05:35 07/28/16 05:35 Discharge Summary Reason For Visit: FEVER Hospital Course: ATTENDING PHYSICIAN STATEMENT I saw and evaluated the patient. I reviewed the resident's note and discussed the case with the resident. I agree with the resident's findings and plan as documented. SUBJECTIVE: seen and evaluated at the bedside OBJECTIVE: left foot swollen with crepitis and draining serosanguinous fluid ASSESSMENT AND PLAN: 65 year old man with Heroin dependence, Hypertension, DM II, Depression, CKD admitted for sepsis due to possible osteomyelitis Osteo -pt has history of infected hardware and intermittent infections in left foot -was offered amputation by ortho at [facility] in the past but at that time refused -grew MSSA in blood culture; echo shows no vegetations -was on cefazolin as per ID attending recs -no MRI as pt has CKD and is at risk for nephrogenic interstitial fibrosis -pt signed out against medical advice before evaluation by podiatry attending Condition: Fair - Instructions Diet, Activity, Other Instructions: You were admitted due to Sepsis (severe infection in your blood). The source of the infection is probably your left foot. You blood grew bacteria MSSA. we treated you with Intravenous antibiotics but you did not finish the course because you left against medical advice. We urge you to see your orthopedic surgeon withing the next few days and follow his recommendations, [facility] may include MRI of the foot. We did an X ray of yoru Left foot that showed signs of inflammation and deformity. You may have a small bowel obstruction at this time based on 2 x rays that we did. please follow up with your primary care physician as soon as possible. You finished a methadone taper and we recommend for you to follow up in outpatient rehab for further addiction support You have had very garrick blood pressure in the hospital. Clonidine 0.1 three times a day was added to your blood pressure regimen and was sent to your pharmacy. We also advise you to speak to PCP about diabetic management. Return to the hospital if symptoms worsen. . Referrals: Sherif Cruz [Non Staff, Medical] - 1 Week STAFF,NOT ON [Primary Care Provider] - 1 Week Seth Morales MD [Staff Physician] - 1 Week Disposition: AGAINST MEDICAL ADVICE - Home Medications Comprehensive Discharge Medication List: Ambulatory Orders Amlodipine Besylate [Norvasc -] 10 mg PO DAILY 07/20/16 Lisinopril [Prinivil] 40 mg PO DAILY 07/20/16 Clonidine HCl [Catapres -] 0.1 mg PO TID #90 tablet 07/25/16 Thiamine HCl [Vitamin B1 -] 100 mg PO DAILY #30 tablet 07/25/16 This patient is new to me today: No Emergency Visit: Yes ED Registration Date: 07/21/16 Care time: The patient presented to the Emergency Department on the above date and was hospitalized for further evaluation of their emergent condition. Critical Care patient: No - Discharge Referral Referred to [facility] No
== END 2016-07-28 10:38 | disposition left against medical advice (07) | DRG 871 ==
LOC: JER 15:56 → JERBED 19:45 → J6S 22:51 → J4W 07-25 07:39
PROVIDERS: ADMIT Internal Medicine; ATTEND Internal Medicine
DX: A41.9 Sepsis, unspecified organism (principal); J18.9 Pneumonia, unspecified organism; N17.9 Acute kidney failure, unspecified; E87.1 Hypo-osmolality and hyponatremia; K56.69 Other intestinal obstruction; F11.23 Opioid dependence with withdrawal; M86.9 Osteomyelitis, unspecified; I12.9 Hypertensive chronic kidney disease with stage 1 through stage 4 chronic kidney disease, or unspecified chronic kidney disease; N18.3 Chronic kidney disease, stage 3 (moderate); K59.00 Constipation, unspecified; E11.9 Type 2 diabetes mellitus without complications; F32.9 Major depressive disorder, single episode, unspecified; D50.9 Iron deficiency anemia, unspecified
CPT/HCPCS: 36415; 71010-TC; 73610-TC-LT; 73630-TC-LT; 74000-TC; 74020-TC; 74176-TC; 80048; 80053; 81003; 81015; 82436; 82550; 82553; 82570; 82803; 83036; 83605; 83690; 83735; 84100; 84133; 84300; 84484; 85025; 85027; 85610; 85651; 85730; 86140; 86850; 86900; 86901; 87040; 87070; 87086; 87186; 87205; 87254; 87804; 87899; 93005; 93010; 93306-TC; 93971-TC; 99285-25; J1644